=== PATIENT | female | born 1960 | race Caucasian/White ===

== ENCOUNTER 2017-09-02 22:17 | Emergency (ER) | payer OTHER ==
[~2017-09-02 22:17] MED LIST: ADVA250A INH; ALBU1AER INH; ALPR1TAB3 PO; ASPI325T PO; CIPR250 PO; ISOS30 PO; OXYC1SOL5 PO; OXYC30TA PO; SOMA350T PO; XANA2TAB2 PO
[2017-09-02] MEDS ORDERED: IOHEXOL 350 MG/ML 10 ML VIAL (for RAD DIAG) IVCONTRAST ONE (22:18)
[2017-09-02 22:25] VITALS: BP 161/88; PULSE 59; RESP 20; TEMP 97.7; O2SAT 97
[2017-09-02] MEDS ORDERED: SODIUM CHLORIDE 0.9% FLUSH 10 ML FLUSH IVF PRN (22:30)
[2017-09-02] MEDS ORDERED: KETOROLAC TROMETHAMINE 30 MG/ML (IVP) VIAL IV PUSH ONE (22:30)
[2017-09-02] MEDS ORDERED: RESP: ALBUTEROL 2.5 MG/IPRATROPIUM 0.5 MG NEB (SCH) NEB ONE (22:30)
[2017-09-02] MEDS ORDERED: ASPI-516 CHEW (22:37)
[2017-09-02] MEDS ORDERED: XANA2TAB2 PO (22:37)
[2017-09-02] MEDS ORDERED: FENT50DI T-DERMAL (22:37)
[2017-09-02] MEDS ORDERED: OXYC-426 PO (22:38)
[2017-09-02 22:50] VITALS: O2SAT 97
--- NOTE | 2017-09-02 22:59 | RADRPT ---
EXAM DATE/TIME: 09/02/2017 22:38 [facility] COMPARISON: CHEST SINGLE AP, January 11, 2016, 17:45. INDICATIONS : Patient complains of chest pain and shortness of breath. MEDICAL HISTORY : None. SURGICAL HISTORY : None. ENCOUNTER: Initial ACUITY: 4 - 6 days PAIN SCORE: 4/10 LOCATION: chest FINDINGS: A single view of the chest demonstrates the lungs to be symmetrically hyperaerated without evidence o f mass, infiltrate or effusion. The cardiomediastinal contours are unremarkable. Osseous structures are intact. CONCLUSION: COPD No acute cardio pulmonary process. Talha Calhoun MD on September 02, 2017 at 22:57 Board Certified Radiologist. This report was verified electronically.
[2017-09-02] MEDS ORDERED: KETOROLAC TROMETHAMINE 60 MG/2 ML (IM) VIAL IM ONE (23:30)
[2017-09-02] MEDS ORDERED: traMADol HCL 50 MG TAB PO ONE (23:30)
[2017-09-03 00:21] LABS: AUTOMATED NEUTROPHIL # 12.2 TH/MM3 (1.8-7.7); BASOPHIL % 0.2 % (0.0-2.0); EOSINOPHIL % 0.1 % (0.0-4.0); HEMATOCRIT 38.1 % (35.0-46.0); HEMOGLOBIN 12.6 GM/DL (11.6-15.3); LYMPH % 14.8 % (9.0-44.0); LYMPHOCYTE # 2.3 TH/MM3 (1.0-4.8); MEAN CELL VOLUME 93.3 FL (80.0-100.0); MEAN CORPUSCULAR HEMOGLOBIN 30.8 PG (27.0-34.0); MEAN PLATELET VOLUME 8.4 FL (7.0-11.0); MONO % 6.7 % (0.0-8.0); MONOCYTE # 1.1 TH/MM3 (0-0.9); NEUT % 78.2 % (16.0-70.0); PLATELET COUNT 236 TH/MM3 (150-450); RED BLOOD COUNT 4.08 MIL/MM3 (4.00-5.30); RED CELL DISTRIBUTION WIDTH 14.1 % (11.6-17.2); WHITE BLOOD COUNT 15.6 TH/MM3 (4.0-11.0)
[2017-09-03 01:08] LABS: D-DIMER 1.92 MG/L FEU (0.00-0.50)
[2017-09-03 01:12] LABS: ALBUMIN 3.1 GM/DL (3.4-5.0); ALKALINE PHOSPHATASE 66 U/L (45-117); ALT (GPT) 21 U/L (10-53); AST (GOT) 23 U/L (15-37); BICARBONATE 22.9 MEQ/L (21.0-32.0); BLOOD UREA NITROGEN 24 MG/DL (7-18); CALCIUM 8.2 MG/DL (8.5-10.1); CHLORIDE 108 MEQ/L (98-107); CREATININE 0.75 MG/DL (0.50-1.00); GLOMERULAR FILTRATION RATE 79 ML/MIN (>89); GLUCOSE,RANDOM 128 MG/DL (74-106); SODIUM (NA) 139 MEQ/L (136-145); TOTAL BILIRUBIN ADULT 0.2 MG/DL (0.2-1.0); TOTAL PROTEIN 6.7 GM/DL (6.4-8.2); TROPONIN I 0.02 NG/ML (0.02-0.05)
--- NOTE | 2017-09-03 04:06 | RADRPT ---
EXAM DATE/TIME: 09/03/2017 03:49 [facility] COMPARISON: No previous studies available for comparison. INDICATIONS : Left sided chest pain with elevated D-Dimer. IV CONTRAST: 50 cc Omnipaque 350 (iohexol) IV RADIATION DOSE: 6.20 CTDIvol (mGy) MEDICAL HISTORY : Cerebrovascular disease. Chronic obstructive pulmonary disease. SURGICAL HISTORY : Hysterectomy. ENCOUNTER: Initial ACUITY: 1 day PAIN SCALE: 7/10 LOCATION: Left chest TECHNIQUE: Volumetric scanning of the chest was performed using a pulmonary embolism protocol MIP images were re constructed. Using automated exposure control and adjustment of the mA and/or kV according to patien t size, radiation dose was kept as low as reasonably achievable to obtain optimal diagnostic quality images. DICOM format image data is available electronically for review and comparison. Follow-up recommendations for detected pulmonary nodules are based at a minimum on nodule size and pa tient risk factors according to Fleischner Society Guidelines. FINDINGS: PULMONARY ARTERIES: No filling defects are seen in the pulmonary arteries through the segmental level. LUNGS: Moderate severity centrilobular and paraseptal pulmonary parenchymal emphysema with upper lobe predom inance. Mild atelectasis of the lower lobes bilaterally. PLEURAE: There is no pleural thickening or pleural effusion. MEDIASTINUM: Coronary artery calcifications. Aortic calcifications. Aortic diameter are within normal limits. No e nlarged mediastinal lymph nodes. MUSCULOSKELETAL: Within normal limits for patient age. MISCELLANEOUS: The visualized upper abdominal organs demonstrate no acute abnormality. CONCLUSION: 1. No evidence of pulmonary embolus. 2. Moderate severity pulmonary emphysema. 3. Coronary artery calcification. Gordo Devlin MD on September 03, 2017 at 3:57 Board Certified Radiologist. This report was verified electronically.
--- NOTE | 2017-09-03 04:23 | PD ---
HPI . Chest pain Chief Complaint: Chest Pain Time Seen by Provider: 22:23 Travel History International Travel<30 days: No Contact w/Intl Traveler<30days: No Traveled to known affect area: No History of Present Illness HPI 49-year-old female discharge today from [facility] with diagnosed pneumonia and left side, complains of having chest pain or left-sided slight shortness of breath. Chest pain is described as being pleuritic, sharp, worse with deep breath. Patient has no cough. Patient denies any recent leg swelling or pain. Patient has been sedentary lying in a hospital bed for past several days. Patient denies any fevers chills sweats. PFSH Past Medical History Narrative Medical Past medical history reviewed Anxiety: Yes Cardiovascular Problems: Yes COPD: Yes Cerebrovascular Accident: Yes Diminished Hearing: No Seizures: Yes Past Surgical History Hysterectomy: Yes Neurologic Surgery: Yes (anyrisym) Tonsillectomy: Yes Family History Family Myocardial Infarction: Yes Social History Alcohol Use: No Tobacco Use: Yes (1 pack) Substance Use: No Allergies-Medications (Allergen,Severity, Reaction): Coded Allergies: Sulfa (Sulfonamide Antibiotics) (Unverified Allergy, Severe, 09/02/17) acetaminophen (Unverified Allergy, Severe, 09/02/17) codeine (Unverified Allergy, Severe, 09/02/17) erythromycin base (Unverified Allergy, Severe, 09/02/17) Reported Meds & Prescriptions Reported Meds & Active Scripts Active Reported Oxycodone ER (Oxycodone HCl) 30 Mg Tab 30 Mg PO Q8HR Xanax (Alprazolam) 2 Mg Tab 2 Mg PO Q8H PRN Fentanyl Patch 72 HR (Fentanyl) 50 Mcg/Hr Patch 50 Mcg T-DERMAL Q72H Remove old patch when new one placed. Aspirin 81 Mg Chew 81 Mg CHEW DAILY Narrative Medication Allergies and medications reviewed Review of Systems Except as stated in HPI: all other systems reviewed are Neg General / Constitutional: No: Fever Eyes: No: Visual changes HENT: No: Headaches Cardiovascular: Positive: Chest Pain or Discomfort, No: Palpitations, Irregular Rhythm, Tachycardia Respiratory: Positive: Shortness of Breath, Pleuritic Pain, No: Cough, Orthopnea, Hemoptysis, Stridor, Night Sweats Gastrointestinal: No: Abdominal Pain Genitourinary: No: Dysuria Musculoskeletal: No: Pain Skin: No Rash Neurologic: No: Weakness Psychiatric: No: Depression Endocrine: No: Polydipsia Hematologic/Lymphatic: No: Easy Bruising Physical Exam Narrative GENERAL: Awake and alert oriented 3 no acute distress. Patient does appear somewhat uncomfortable SKIN: Warm and dry. Color is normal no diaphoresis cyanosis or pallor HEAD: Atraumatic. Normocephalic. EYES: Pupils equal and round. No scleral icterus. No injection or drainage. ENT: No nasal bleeding or discharge. Mucous membranes pink and moist. NECK: Trachea midline. No JVD. Supple full range of motion CARDIOVASCULAR: Regular rate and rhythm. S1-S2 no murmurs or gallops RESPIRATORY: No accessory muscle use. Clear to auscultation. Breath sounds equal bilaterally. Chest wall nontender GASTROINTESTINAL: Abdomen soft, non-tender, nondistended. Hepatic and splenic margins not palpable. MUSCULOSKELETAL: Extremities without clubbing, cyanosis, or edema. No obvious deformities. NEUROLOGICAL: Awake and alert. No obvious cranial nerve deficits. Motor grossly within normal limits. Five out of 5 muscle strength in the arms and legs. Normal speech. PSYCHIATRIC: Appropriate mood and affect; insight and judgment normal. Data Data Last Documented VS Vital Signs Date Time Temp Pulse Resp B/P (MAP) Pulse Ox O2 Delivery O2 Flow Rate FiO2 09/02/17 22:51 18 97 Room Air 09/02/17 22:25 97.7 59 161/88 (112) Orders Orders Electrocardiogram (09/02/17 22:28) B-Type Natriuretic Peptide (09/02/17 22:28) Ckmb (Isoenzyme) Profile (09/02/17 22:28) Complete Blood Count With Diff (09/02/17 22:28) Comprehensive Metabolic Panel (09/02/17 22:28) D-Dimer (09/02/17 22:28) Magnesium (Mg) (09/02/17 22:28) Prothrombin Time / Inr (Pt) (09/02/17 22:28) Act Partial Throm Time (Ptt) (09/02/17 22:28) Troponin I (09/02/17 22:28) Chest, Single Ap (09/02/17 22:28) Ecg Monitoring (09/02/17 22:28) Bilateral Bp Monitoring (09/02/17 22:28) Iv Access Insert/Monitor (09/02/17 22:28) Oximetry (09/02/17 22:28) Oxygen Administration (09/02/17 22:28) Sodium Chloride 0.9% Flush (Ns Flush) (09/02/17 22:30) Albuterol-Ipratropium Neb (Duoneb Neb) (09/02/17 22:30) Ketorolac Inj (Toradol Inj) (09/02/17 23:30) Tramadol (Ultram) (09/02/17 23:30) Ct Pulmonary Angiogram (09/03/17 ) Iohexol 350 Inj (Omnipaque 350 Inj) (09/02/17 22:18) Labs Laboratory Tests Test 09/02/17 23:59 White Blood Count 15.6 TH/MM3 Red Blood Count 4.08 MIL/MM3 Hemoglobin 12.6 GM/DL Hematocrit 38.1 % Mean Corpuscular Volume 93.3 FL Mean Corpuscular Hemoglobin 30.8 PG Mean Corpuscular Hemoglobin Concent 33.0 % Red Cell Distribution Width 14.1 % Platelet Count 236 TH/MM3 Mean Platelet Volume 8.4 FL Neutrophils (%) (Auto) 78.2 % Lymphocytes (%) (Auto) 14.8 % Monocytes (%) (Auto) 6.7 % Eosinophils (%) (Auto) 0.1 % Basophils (%) (Auto) 0.2 % Neutrophils # (Auto) 12.2 TH/MM3 Lymphocytes # (Auto) 2.3 TH/MM3 Monocytes # (Auto) 1.1 TH/MM3 Eosinophils # (Auto) 0.0 TH/MM3 Basophils # (Auto) 0.0 TH/MM3 CBC Comment AUTO DIFF Differential Comment AUTO DIFF CONFIRMED Prothrombin Time 10.0 SEC Prothromb Time International Ratio 1.0 RATIO Activated Partial Thromboplast Time 19.2 SEC D-Dimer Quantitative (PE/DVT) 1.92 MG/L FEU Blood Urea Nitrogen 24 MG/DL Creatinine 0.75 MG/DL Random Glucose 128 MG/DL Total Protein 6.7 GM/DL Albumin 3.1 GM/DL Calcium Level 8.2 MG/DL Magnesium Level 2.0 MG/DL Alkaline Phosphatase 66 U/L Aspartate Amino Transf (AST/SGOT) 23 U/L Alanine Aminotransferase (ALT/SGPT) 21 U/L Total Bilirubin 0.2 MG/DL Sodium Level 139 MEQ/L Potassium Level 4.2 MEQ/L Chloride Level 108 MEQ/L Carbon Dioxide Level 22.9 MEQ/L Anion Gap 8 MEQ/L Estimat Glomerular Filtration Rate 79 ML/MIN Total Creatine Kinase 78 U/L Troponin I 0.02 NG/ML B-Type Natriuretic Peptide 88 PG/ML MDM Medical Decision Making Medical Screen Exam Complete: Yes Emergency Medical Condition: Yes Medical Record Reviewed: Yes Differential Diagnosis Pleuritis, atypical chest pain, portable is, costochondritis, chest wall pain/ strain Narrative Course Chest x-ray no acute infiltrates. Patient's laboratory reviewed, patient has elevated white blood cell count without significant left shift consistent with probable concomitant steroid use D-dimer positive at 1.91. CT pulmonary Gen. chest negative for pulmonary embolus Patient improved with pain medications. Discharge Diagnosis Primary Impression: Chest pain, atypical Patient Instructions: Chest Pain (ED), General Instructions Additional Instructions: Pain medications sparingly as needed for chest pain/probable pleuritis. Follow- up with your doctor. Return for worsening Disposition: 01 DISCHARGE HOME Condition: Stable John Mancilla MD Sep 03, 2017 04:22
--- NOTE | 2017-09-03 12:44 | EKG ---
Date Performed: 09/02/2017 Time Performed: 22:46:40 PTAGE: 57 years EKG: Poor initial anterior forces, probable normal variant Sinus bradycardia Since previous trac ing, no significant change noted ABNORMAL ECG PREVIOUS TRACING : 01/12/2016 01.52 DOCTOR: Yazan Ahumada Interpretating Date/Time 09/03/2017 12:43:14
[2017-09-03] MEDS ORDERED: PROZ40CA PO (15:08)
[2017-09-03] MEDS ORDERED: BUSP5TAB PO (15:08)
[2017-09-03] MEDS ORDERED: LIPI10TA PO (15:08)
== END 2017-09-03 05:06 | disposition home or self-care (01) ==
LOC: NEPE 22:17
DX: R07.89 Other chest pain (principal); R00.1 Bradycardia, unspecified; R94.31 Abnormal electrocardiogram [ECG] [EKG]; F41.9 Anxiety disorder, unspecified; J44.9 Chronic obstructive pulmonary disease, unspecified; R56.9 Unspecified convulsions; F17.200 Nicotine dependence, unspecified, uncomplicated; Z86.73 Personal history of transient ischemic attack (TIA), and cerebral infarction without residual deficits; Z79.82 Long term (current) use of aspirin
CPT/HCPCS: 71045; 71275; 80053; 82550; 83735; 83880; 84484; 85025; 85379; 85610; 85730; 93005; 94664; 96372; J1885; Q9967

== ENCOUNTER 2017-09-03 06:16 | Inpatient (IN) | payer OTHER ==
[~2017-09-03] VITALS: Ht 182.9 cm; Wt 49.0 kg
[~2017-09-03 06:16] MED LIST changes: -ADVA250A INH; -ALBU1AER INH; -ALPR1TAB3 PO; +ASPI-516 CHEW; -ASPI325T PO; -CIPR250 PO; +FENT50DI T-DERMAL; -ISOS30 PO; +OXYC-426 PO; -OXYC1SOL5 PO; -OXYC30TA PO; -SOMA350T PO
[2017-09-03 06:19] VITALS: BP 173/75; PULSE 82; RESP 20; TEMP 98.5; O2SAT 98
--- NOTE | 2017-09-03 06:32 | PD ---
HPI Chief Complaint: Psychiatric Symptoms Time Seen by Provider: 06:27 Travel History International Travel<30 days: No Contact w/Intl Traveler<30days: No Traveled to known affect area: No History of Present Illness HPI 57-year-old female presents to emergency department voluntarily for psychiatric evaluation. Patient states that she is overwhelmed. She lost her 2 weeks ago and states that she wants to go and be with him. She wants to go home and get one of his guns and kill herself. She states that she is trying to be strong for everybody else, but is unable to and feels like she has nobody to lean on. She states she's been having chest pains and her heart has been looked at so she believes this is likely secondary to anxiety. Back patient was seen and evaluated earlier this evening with a complete negative workup. Patient is very tearful and anxious in the room. She reports no acute medical needs at this time. PFSH Past Medical History Anxiety: Yes Cardiovascular Problems: Yes COPD: Yes Cerebrovascular Accident: Yes Diminished Hearing: No Respiratory: Yes (COPD) Seizures: Yes Past Surgical History Hysterectomy: Yes Neurologic Surgery: Yes (anyrisym) Tonsillectomy: Yes Family History Family Myocardial Infarction: Yes Social History Alcohol Use: No Tobacco Use: Yes (1 pack) Substance Use: No Allergies-Medications (Allergen,Severity, Reaction): Coded Allergies: Sulfa (Sulfonamide Antibiotics) (Unverified Allergy, Severe, 09/03/17) acetaminophen (Unverified Allergy, Severe, 09/03/17) codeine (Unverified Allergy, Severe, 09/03/17) erythromycin base (Unverified Allergy, Severe, 09/03/17) Reported Meds & Prescriptions Reported Meds & Active Scripts Active Reported Oxycodone ER (Oxycodone HCl) 30 Mg Tab 30 Mg PO Q8HR Xanax (Alprazolam) 2 Mg Tab 2 Mg PO Q8H PRN Fentanyl Patch 72 HR (Fentanyl) 50 Mcg/Hr Patch 50 Mcg T-DERMAL Q72H Remove old patch when new one placed. Aspirin 81 Mg Chew 81 Mg CHEW DAILY Review of Systems Except as stated in HPI: all other systems reviewed are Neg Physical Exam Narrative GENERAL: Disheveled appearing elderly female patient, lying in bed tearful, anxious, SKIN: Focused skin assessment warm/dry. HEAD: Atraumatic. Normocephalic. EYES: Pupils equal and round. No scleral icterus. No injection or drainage. ENT: No nasal bleeding or discharge. Mucous membranes pink and moist. NECK: Trachea midline. No JVD. CARDIOVASCULAR: Regular rate and rhythm. No murmur appreciated. RESPIRATORY: No accessory muscle use. Clear to auscultation. Breath sounds equal bilaterally. GASTROINTESTINAL: Abdomen soft, non-tender, nondistended. Hepatic and splenic margins not palpable. MUSCULOSKELETAL: No obvious deformities. No clubbing. No cyanosis. No edema. Right lower extremity BKA NEUROLOGICAL: Awake and alert. No obvious cranial nerve deficits. Motor grossly within normal limits. Normal speech. Data Data Last Documented VS Vital Signs Date Time Temp Pulse Resp B/P (MAP) Pulse Ox O2 Delivery O2 Flow Rate FiO2 09/03/17 06:19 98.5 82 20 173/75 (107) 98 Room Air Orders Orders Psych Screen (09/03/17 06:31) Lorazepam (Ativan) (09/03/17 06:45) MDM Medical Decision Making Medical Screen Exam Complete: Yes Emergency Medical Condition: Yes Medical Record Reviewed: Yes Differential Diagnosis Mood disorder versus personality disorder versus adjustment reaction disorder Narrative Course 57-year-old female presents to the emergency department voluntarily for psychiatric evaluation. Patient is having suicidal thoughts with a plan to go home and shoot herself. Patient is having difficult time coping with her 's . She does not want to go home. She wants to stay and get help. At this time she is voluntary status. Lab work was done at her earlier visit today. [facility] it is reviewed and patient is medically cleared to undergo psychiatric screening for further evaluation and disposition. Diagnosis Primary Impression: Adjustment reaction Qualified Codes: F43.23 - Adjustment disorder with mixed anxiety and depressed mood Condition: Stable StewartJazlyn MADELIN Sep 03, 2017 06:32
[2017-09-03] MEDS ORDERED: LORazepam 1 MG TAB PO ONE (06:45)
[2017-09-03 10:05] VITALS: BP 146/84; PULSE 69; RESP 16; O2SAT 98
[2017-09-03] MEDS ORDERED: PROZ40CA PO (15:08)
[2017-09-03] MEDS ORDERED: BUSP5TAB PO (15:08)
[2017-09-03] MEDS ORDERED: LIPI10TA PO (15:08)
[2017-09-03 16:52] VITALS: BP 160/98; PULSE 65; RESP 17; TEMP 98.1
[2017-09-03] MEDS ORDERED: fentaNYL 50 MCG/HR PATCH T-DERMAL SCH (17:30)
[2017-09-03] MEDS ORDERED: RESP: ALBUTEROL 2.5 MG/IPRATROPIUM 0.5 MG NEB (PRN) NEB (17:30)
[2017-09-03] MEDS: REMOVE OLD PATCH T-DERMAL SCH (18:00)
[2017-09-03] MEDS: fentaNYL 50 MCG/HR PATCH T-DERMAL SCH (18:00)
[2017-09-03] MEDS: ASPIRIN 81 MG CHEW TAB CHEW SCH (18:28)
[2017-09-03] MEDS: ALPRAZolam 1 MG TAB PO PRN (18:29)
[2017-09-03] MEDS: ATORVASTATIN 10 MG TAB PO SCH (18:29)
[2017-09-03] MEDS ORDERED: NICOTINE 21 MG/24 HR PATCH T-DERMAL ONE (18:30)
[2017-09-03] MEDS ORDERED: OXYCODONE 30 MG PO SCH (22:00)
[2017-09-03] MEDS: guaiFENesin E.R. 600 MG TAB PO SCH (22:09)
[2017-09-03] MEDS: oxyCODONE HCL 10 MG CONTROLLED RELEASE TAB PO SCH (22:09)
[2017-09-04] MEDS: oxyCODONE HCL 10 MG CONTROLLED RELEASE TAB PO SCH (06:14)
[2017-09-04 06:38] VITALS: BP 141/71; PULSE 62; RESP 16; TEMP 98.1; O2SAT 95
[2017-09-04] MEDS: REMOVE OLD PATCH T-DERMAL SCH (08:26)
[2017-09-04] MEDS: guaiFENesin E.R. 600 MG TAB PO SCH ×2 (08:26→21:44)
[2017-09-04] MEDS: NICOTINE 21 MG/24 HR PATCH T-DERMAL SCH (08:26)
[2017-09-04] MEDS: ATORVASTATIN 10 MG TAB PO SCH (08:27)
[2017-09-04] MEDS: ASPIRIN 81 MG CHEW TAB CHEW SCH (08:27)
[2017-09-04] MEDS: ALPRAZolam 1 MG TAB PO PRN (08:45)
[2017-09-04] MEDS ORDERED: ASPIRIN 81 MG CHEW TAB PO SCH (09:00)
[2017-09-04] MEDS ORDERED: ATORVASTATIN 10 MG TAB PO SCH (09:00)
[2017-09-04] MEDS: fentaNYL 50 MCG/HR PATCH T-DERMAL SCH (12:15)
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
[2017-09-04] MEDS ORDERED: FLUMAZENIL 0.5 MG/5 ML VIAL IV PUSH PRN (15:45)
[2017-09-04] MEDS ORDERED: LORazepam 1 MG TAB PO PRN (15:45)
[2017-09-04] MEDS ORDERED: LORazepam 2 MG/ML VIAL IM PRN ×3 (15:45)
[2017-09-04] MEDS ORDERED: LORazepam 2 MG TAB PO PRN (15:45)
[2017-09-04] MEDS: oxyCODONE HCL 20 MG CONTROLLED RELEASE TAB PO SCH ×2 (15:45→22:00)
[2017-09-04] MEDS: FLUoxetine HCL 20 MG CAP PO SCH (15:50)
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
[2017-09-04 16:49] LABS: AUTOMATED NEUTROPHIL # 7.5 TH/MM3 (1.8-7.7); BASOPHIL # 0.1 TH/MM3 (0-0.2); BASOPHIL % 0.6 % (0.0-2.0); EOSINOPHIL # 0.3 TH/MM3 (0-0.4); EOSINOPHIL % 2.6 % (0.0-4.0); HEMATOCRIT 44.6 % (35.0-46.0); HEMOGLOBIN 14.7 GM/DL (11.6-15.3); LYMPH % 32.7 % (9.0-44.0); LYMPHOCYTE # 4.4 TH/MM3 (1.0-4.8); MEAN CELL VOLUME 93.4 FL (80.0-100.0); MEAN CORPUSCULAR HEMOGLOBIN 30.8 PG (27.0-34.0); MEAN PLATELET VOLUME 8.6 FL (7.0-11.0); MONO % 7.4 % (0.0-8.0); NEUT % 56.7 % (16.0-70.0); PLATELET COUNT 304 TH/MM3 (150-450); RED BLOOD COUNT 4.78 MIL/MM3 (4.00-5.30); RED CELL DISTRIBUTION WIDTH 14.3 % (11.6-17.2); WHITE BLOOD COUNT 13.3 TH/MM3 (4.0-11.0)
[2017-09-04 17:10] LABS: ALBUMIN 3.7 GM/DL (3.4-5.0); AST (GOT) 23 U/L (15-37); BLOOD UREA NITROGEN 21 MG/DL (7-18); CALCIUM 8.3 MG/DL (8.5-10.1); CHLORIDE 102 MEQ/L (98-107); CHOLESTEROL 116 MG/DL (120-200); CREATININE 1.03 MG/DL (0.50-1.00); GLOMERULAR FILTRATION RATE 55 ML/MIN (>89); GLUCOSE,RANDOM 85 MG/DL (74-106); SODIUM (NA) 137 MEQ/L (136-145); TRIGLYCERIDES 210 MG/DL (42-150)
[2017-09-04 17:20] LABS: ALKALINE PHOSPHATASE 76 U/L (45-117); ALT (GPT) 29 U/L (10-53); CHOLESTEROL/ HDL RATIO 1.94 RATIO; FREE T4 1.06 NG/DL (0.76-1.46); HDL CHOLESTEROL 59.5 MG/DL (40.0-60.0); LDL CHOLESTEROL 15 MG/DL (0-99); PHOSPHORUS 5.6 MG/DL (2.5-4.9); TOTAL BILIRUBIN ADULT 0.4 MG/DL (0.2-1.0); TOTAL PROTEIN 7.5 GM/DL (6.4-8.2)
[2017-09-04] MEDS: clonazePAM 1 MG TAB PO SCH ×2 (18:21→22:18)
[2017-09-04 18:26] VITALS: BP 107/64; PULSE 66; RESP 16; TEMP 97.8; O2SAT 94
[2017-09-04] MEDS: busPIRone HCL 5 MG TAB PO SCH (21:44)
[2017-09-04 22:35] LABS: HEMOGLOBIN A1C 5.2 % (4.3-6.0)
[2017-09-05 06:05] VITALS: BP 122/61; PULSE 51; RESP 16; TEMP 98.3; O2SAT 94
[2017-09-05] MEDS: oxyCODONE HCL 20 MG CONTROLLED RELEASE TAB PO SCH (06:23)
[2017-09-05] MEDS: REMOVE OLD PATCH T-DERMAL SCH (09:00)
[2017-09-05] MEDS: LISINOPRIL 5 MG TAB PO SCH (09:00)
[2017-09-05] MEDS: NICOTINE 21 MG/24 HR PATCH T-DERMAL SCH (09:13)
[2017-09-05] MEDS: busPIRone HCL 5 MG TAB PO SCH ×3 (09:15→21:20)
[2017-09-05] MEDS: clonazePAM 1 MG TAB PO SCH ×4 (09:15→21:19)
[2017-09-05] MEDS: guaiFENesin E.R. 600 MG TAB PO SCH ×2 (09:16→21:19)
[2017-09-05] MEDS: ATORVASTATIN 10 MG TAB PO SCH (09:17)
[2017-09-05] MEDS: FLUoxetine HCL 20 MG CAP PO SCH (09:18)
[2017-09-05] MEDS: ASPIRIN 81 MG CHEW TAB CHEW SCH (09:18)
--- NOTE | 2017-09-05 09:42 | HHI.PYPN ---
Subjective Chief Complaint: "I have no desire to live" Remarks Patient seen and examined with nurse. Chart reviewed. I was called yesterday afternoon by the nurse because the patient was clearly intoxicated on her prescribed controlled substances, reportedly giggling and slurring her words. I instructed nurse to hold doses of opiates if patient remained intoxicated. Case discussed in treatment team. Counselor reports that the patient is presently without stable housing and may be looking for placement. On my exam, patient confirms that she does not have a place to stay presently. She remains dysphoric and continues to endorse SI with plans as before. She denies any urge to hurt herself on the inpatient unit. She says that her anxiety is "through the roof" although the patient does not appear at all anxious. Indeed , she continues to appear intoxicated from substances. She is resistant to adjusting her controlled substances. Denies side effects from medications. Endorses chronic pain complaints and is resistant to considering non-controlled adjuvant agents for pain. No other physical complaints. Review of Systems Except as stated in HPI: all other systems reviewed are Neg Mental Status Examination Appearance: Other (in hospital attire. Grooming remains fair.) Consciousness: Other (Somewhat drowsy) Orientation: Person, Place (at least) Motor Activity: Other (remains psychomotor slowed) Speech: Slow, Other (somewhat slurred) Language: Adequate Fund of Knowledge: Adequate Attention and Concentration: Easily Distracted Memory: Unremarkable Mood: Other (remains dysphoric) Affect: Blunt Thought Process & Associations: Other (slowed) Thought Content: Appropriate Hallucination Type: None Delusion Type: None Suicidal Ideation: Yes Suicidal Plan: Yes (again no reported urge to hurt herself on the inpatient unit) Suicidal Intention: No Homicidal Ideation: No Homicidal Plan: No Homicidal Intention: No Insight: Fair Judgment: Impulsive Mental Status Exam Remarks No signs of GABAergic withdrawal. CIWA max in last 24 hours = 1. Results Labs Test 09/04/17 16:24 White Blood Count 13.3 TH/MM3 Red Blood Count 4.78 MIL/MM3 Hemoglobin 14.7 GM/DL Hematocrit 44.6 % Mean Corpuscular Volume 93.4 FL Mean Corpuscular Hemoglobin 30.8 PG Mean Corpuscular Hemoglobin Concent 33.0 % Red Cell Distribution Width 14.3 % Platelet Count 304 TH/MM3 Mean Platelet Volume 8.6 FL Neutrophils (%) (Auto) 56.7 % Lymphocytes (%) (Auto) 32.7 % Monocytes (%) (Auto) 7.4 % Eosinophils (%) (Auto) 2.6 % Basophils (%) (Auto) 0.6 % Neutrophils # (Auto) 7.5 TH/MM3 Lymphocytes # (Auto) 4.4 TH/MM3 Monocytes # (Auto) 1.0 TH/MM3 Eosinophils # (Auto) 0.3 TH/MM3 Basophils # (Auto) 0.1 TH/MM3 CBC Comment DIFF FINAL Differential Comment Blood Urea Nitrogen 21 MG/DL Creatinine 1.03 MG/DL Random Glucose 85 MG/DL Total Protein 7.5 GM/DL Albumin 3.7 GM/DL Calcium Level 8.3 MG/DL Phosphorus Level 5.6 MG/DL Magnesium Level 2.0 MG/DL Alkaline Phosphatase 76 U/L Aspartate Amino Transf (AST/SGOT) 23 U/L Alanine Aminotransferase (ALT/SGPT) 29 U/L Total Bilirubin 0.4 MG/DL Sodium Level 137 MEQ/L Potassium Level 3.7 MEQ/L Chloride Level 102 MEQ/L Carbon Dioxide Level 27.0 MEQ/L Anion Gap 8 MEQ/L Estimat Glomerular Filtration Rate 55 ML/MIN Hemoglobin A1c 5.2 % Triglycerides Level 210 MG/DL Cholesterol Level 116 MG/DL LDL Cholesterol 15 MG/DL HDL Cholesterol 59.5 MG/DL Cholesterol/HDL Ratio 1.94 RATIO Free Thyroxine 1.06 NG/DL Thyroid Stimulating Hormone 3rd Gen 9.410 uIU/ML Labs reviewed. Compared to laboratories from 09/02, I note improved leukocytosis and decreased GFR. TSH is somewhat elevated. Last Impressions Brain MRI 09/05/17 0000 Signed Impressions: Service Date/Time: Tuesday, September 05, 2017 10:34 - CONCLUSION: 1. Focal encephalomalacia in the left medial parieto-occipital mid to high convexities with associated gliosis. No evidence for associated mass or mass effect. Overall findings are most consistent with focal chronic infarct. Tom Jimenez MD Vitals/IOs Vital Signs Date Time Temp Pulse Resp B/P (MAP) Pulse Ox O2 Delivery O2 Flow Rate FiO2 09/05/17 06:05 98.3 51 16 122/61 (81) 94 09/03/17 06:19 Room Air Assessment & Plan Problem List: (1) Adjustment reaction ICD Codes: F43.20 - Adjustment disorder, unspecified Status: Acute Assessment & Plan: Rule-out component of secondary gain for intermediate. (2) Rule-out iatrogenic substance use disorder Assessment & Plan Continue Prozac 60mg daily for low mood. Titrate BuSpar to 10mg TID to target reported anxiety. Patient remains mildly intoxicated on current opioid regimen , and I also note her SpO2 is 94%, no non-verbal pain behaviors noted: taper Oxycontin to 10mg q8h and continue fentanyl patch as ordered. R/B/A for med changes discussed with patient. Continue Klonopin taper and continue CIWA scale with Ativan for breakthrough withdrawal. Neuro has ordered MRI brain, impression reviewed. Await consultation note from neurology. Check FT4. Check UA given improving leukocytosis. Continue to monitor on inpatient unit. Continue other meds and care as ordered. Justification for Cont. Inpt. Complicating conditions (intoxication on outpatient med regimen). Med changes. Impairment in safety. High risk for decompensation in less restrictive setting. Discharge Planning Pending psychiatric stabilization Request HC Surrog/Guard Advoc?: No Problem Qualifiers (1) Adjustment reaction: Qualified Codes: F43.23 - Adjustment disorder with mixed anxiety and depressed mood Holden Sweet MD Sep 05, 2017 09:42
--- NOTE | 2017-09-05 11:22 | RADRPT ---
EXAM DATE/TIME: 09/05/2017 10:34 [facility] COMPARISON: No previous studies available for comparison. INDICATIONS : Cephalgia. Seizure activity. MEDICAL HISTORY : Chronic obstructive pulmonary disease. Aneurysm, intracranial. Seizures. SURGICAL HISTORY : Tubal ligation. Cholecystectomy. Aneurysm coiling. Jaw reconstruction. Iza GASTON. ENCOUNTER: Subsequent ACUITY: 3 day PAIN SCORE: 2/10 LOCATION: head. TECHNIQUE: Multiplanar, multisequence MRI of the brain was performed without contrast. FINDINGS: CEREBRUM: There is focal encephalomalacia of the left medial parieto-occipital mid to high convex ities with adjacent white matter increased flair and T2 signal. No associated hemorrhage or restricte d diffusion. The ventricles are normal for age. No evidence of midline shift, hemorrhage or acute i nfarction. No extraaxial fluid collections are seen. The pituitary gland and suprasellar cistern ar e normal in configuration. WHITE MATTER: No significant signal abnormalities are seen in the white matter. POSTERIOR FOSSA: The cerebellum and brainstem are intact. The 4th ventricle is midline. The cere bellopontine angle is unremarkable. The cerebellar tonsils are normal in position. DIFFUSION IMAGING: No focal areas of restricted diffusion are seen. No evidence of acute infarct ion. EXTRACRANIAL: The visualized portions of the orbits and paranasal sinuses are unremarkable. CONCLUSION: 1. Focal encephalomalacia in the left medial parieto-occipital mid to high convexities with associate d gliosis. No evidence for associated mass or mass effect. Overall findings are most consistent with focal chronic infarct. Tom Jimenez MD on September 05, 2017 at 11:11 Board Certified Radiologist. This report was verified electronically.
[2017-09-05] MEDS: oxyCODONE HCL 10 MG CONTROLLED RELEASE TAB PO SCH ×2 (13:31→21:27)
[2017-09-05 17:45] VITALS: BP 101/68; PULSE 61; RESP 16; TEMP 97.9; O2SAT 99
[2017-09-05 18:00] LABS: BILIRUBIN, URINE NEG (NEG); BLOOD, URINE NEG (NEG); GLUCOSE,URINE NEG (NEG); KETONE, URINE NEG (NEG); NITRITE,URINE NEG (NEG); SQUAMOUS EPITHELIAL CELL URINE <1 /hpf (0-5); URINE COLOR LIGHT-YELLOW (YELLW/STRAW); URINE LEUKOCYTE ESTERASE NEG (NEG)
[2017-09-05] MEDS: levETIRAcetam 500 MG TAB PO SCH (21:21)
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
[2017-09-06] MEDS: oxyCODONE HCL 10 MG CONTROLLED RELEASE TAB PO SCH ×3 (06:27→21:31)
[2017-09-06] MEDS: NICOTINE 21 MG/24 HR PATCH T-DERMAL SCH (08:33)
[2017-09-06] MEDS: LISINOPRIL 5 MG TAB PO SCH (08:34)
[2017-09-06] MEDS: ATORVASTATIN 10 MG TAB PO SCH (08:34)
[2017-09-06] MEDS: clonazePAM 1 MG TAB PO SCH ×4 (08:34→20:39)
[2017-09-06] MEDS: guaiFENesin E.R. 600 MG TAB PO SCH ×2 (08:34→21:31)
[2017-09-06] MEDS: levETIRAcetam 500 MG TAB PO SCH ×2 (08:34→20:39)
[2017-09-06] MEDS: ASPIRIN 81 MG CHEW TAB CHEW SCH (08:34)
[2017-09-06] MEDS: FLUoxetine HCL 20 MG CAP PO SCH (08:34)
[2017-09-06] MEDS: busPIRone HCL 5 MG TAB PO SCH ×3 (08:36→21:31)
[2017-09-06] MEDS: REMOVE OLD PATCH T-DERMAL SCH ×2 (09:00→18:00)
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
--- NOTE | 2017-09-06 12:38 | PD.TTN ---
Patient Problems 1. Discharge planning 2. Medication compliance 3. Knowledge deficit 4. Lack of coping skills Progress Toward Goals Provider Present: Dr. Del Sweet Provider Input: 09/05- Pt is being tapered off her controlled substances and her Prozac is being titrated. Psychiatric Counselors Present: CESAR Abdi Psych Therapist Input: 09/05- Pt reports ongoing depression and grief but appears cooperative, appropriate, organized and oriented. She has been compliant with medication regiment. Pt has been utilizing some amount of coping and emotional regulation skills though they appear limited. Pt presents with poor insight into condition and need for care. She is currently homeless and would like assistance with placement. Group Spec/RT/OT/MELENDEZ Present: AL Maguire Group Spec/RT/OT/MELENDEZ Input: 09/05- AL Maguire Pt is a new admit from yesterday and has not attended groups up to this point. Discharge Plan SMA, Homeless plan Pt will likely be linked with homeless plan as she does not want to live at an [facility] and does not have any where to go at this time. Documentation Scribe: CESAR Abdi Jonathan LMHC Sep 06, 2017 12:38
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
[2017-09-06] MEDS ORDERED: LORazepam 2 MG/ML VIAL IM STA (16:31)
[2017-09-06 18:00] VITALS: BP 90/54; PULSE 62; RESP 16; TEMP 97.7; O2SAT 82
--- NOTE | 2017-09-06 19:13 | RADRPT ---
EXAM DATE/TIME: 09/06/2017 18:26 [facility] COMPARISON: No previous studies available for comparison. INDICATIONS : Head pain due to fall or possible seizure. RADIATION DOSE: 56.35 CTDIvol (mGy) MEDICAL HISTORY : Seizures. Chronic obstructive pulmonary disease. Cerebrovascular disease.Cardiac SURGICAL HISTORY : Hysterectomy. Tubal ligation.Cholecystectomy.Chest sx., Aneuryism coil ENCOUNTER: Initial ACUITY: 1 day PAIN SCALE: 1/10 LOCATION: Bilateral cranial TECHNIQUE: Multiple contiguous axial images were obtained of the head. Using automated exposure control and adj ustment of the mA and/or kV according to patient size, radiation dose was kept as low as reasonably a chievable to obtain optimal diagnostic quality images. DICOM format image data is available electro nically for review and comparison. FINDINGS: CEREBRUM: There some diffuse atrophy present. There is some encephalomalacia in the high left posterior frontal region which is unchanged. No acute mass or mass effect is identified. I don't see any evidence of h emorrhage.. POSTERIOR FOSSA: The cerebellum and brainstem are intact. The 4th ventricle is midline. The cerebellopontine angle i s unremarkable. EXTRACRANIAL: The visualized portion of the orbits is intact. SKULL: The calvaria is intact. No evidence of skull fracture. CONCLUSION: Stable encephalomalacia and aneurysm clip. No evidence of hemorrhage, or any acute edema. The patien t did have a small witnessed seizure while the patient was on the table. She recovered quickly and wa s transported back to the room.. Rg Suggs MD on September 06, 2017 at 19:10 Board Certified Radiologist. This report was verified electronically.
[2017-09-06] MEDS: fentaNYL 50 MCG/HR PATCH T-DERMAL SCH (20:41)
[2017-09-07] MEDS: LORazepam 2 MG/ML VIAL IM PRN ×2 (01:40→21:30)
[2017-09-07 06:10] VITALS: BP 86/54; PULSE 54; RESP 18; TEMP 97.5; O2SAT 96
[2017-09-07 07:51] VITALS: BP 108/55; PULSE 61
[2017-09-07] MEDS: oxyCODONE HCL 10 MG CONTROLLED RELEASE TAB PO SCH ×3 (07:58→21:59)
[2017-09-07] MEDS: FLUoxetine HCL 20 MG CAP PO SCH (07:59)
[2017-09-07] MEDS: guaiFENesin E.R. 600 MG TAB PO SCH ×2 (07:59→21:57)
[2017-09-07] MEDS: clonazePAM 1 MG TAB PO SCH ×4 (07:59→21:59)
[2017-09-07] MEDS: busPIRone HCL 5 MG TAB PO SCH ×3 (08:00→21:57)
[2017-09-07] MEDS: ATORVASTATIN 10 MG TAB PO SCH (08:00)
[2017-09-07] MEDS: levETIRAcetam 500 MG TAB PO SCH ×2 (08:00→21:58)
[2017-09-07] MEDS: ASPIRIN 81 MG CHEW TAB CHEW SCH (08:01)
[2017-09-07] MEDS: REMOVE OLD PATCH T-DERMAL SCH (08:02)
[2017-09-07] MEDS: NICOTINE 21 MG/24 HR PATCH T-DERMAL SCH (08:02)
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
--- NOTE | 2017-09-07 08:44 | HHI.PYPN ---
Subjective Remarks Patient seen for follow-up, chart review. Discussion she staff reported the patient had who was reported to be another seizure lasted 35 seconds as per nursing report last night at around 01:40 hours. Patient this morning was found lying in hospital bed, cooperative and noted to be tearful at one point during interview when speaking about her recently . Patient states that she has been feeling "horrible" from her seizures feeling confused and depressed stating that her was recently murdered. Patient states that she does have a daughter for support but that she lives with her in-laws and unable to stay with her daughter at this time. Patient denies having any other support systems at this time. Patient expresses concern of her belongings from her previous residence with her states that the management from her housing at her mood or her belongings and does not know where they are. Patient states that her anxiety continues to be difficult to manage although patient noted to be calm, not noted clinical signs of anxiety or panic during interview. She mentions that she would like to go back to Xanax or Ativan stating that it helps her anxiety as well as controls her seizures. Extensive psychoeducation was provided to patient due to risks of continuing this benzodiazepine use to address anxiety which she acknowledges will continue to request to be put back on these benzodiazepines. Patient this time denies any SI or HI AVH or delusions. Review of Systems Except as stated in HPI: all other systems reviewed are Neg Mental Status Examination Appearance: Other (in hospital attire. Grooming fair.) Consciousness: Alert Orientation: Person, Place (at least) Motor Activity: Other Speech: Unremarkable Language: Adequate Fund of Knowledge: Adequate Attention and Concentration: Easily Distracted Memory: Unremarkable Mood: Sad, Other (remains dysphoric) Affect: Blunt, Other (Does not appear anxious, tearful at times) Thought Process & Associations: Intact Thought Content: Other (Perseverative on obtaining benzodiazepines) Hallucination Type: None Delusion Type: None Suicidal Ideation: No Suicidal Plan: No Suicidal Intention: No Homicidal Ideation: No Homicidal Plan: No Homicidal Intention: No Insight: Fair Judgment: Impulsive Results Vitals/IOs Vital Signs Date Time Temp Pulse Resp B/P (MAP) Pulse Ox O2 Delivery O2 Flow Rate FiO2 09/07/17 07:51 61 108/55 (72) 09/07/17 06:10 97.5 18 96 Intake and Output 09/07/17 09/07/17 09/08/17 08:00 16:00 00:00 Intake Total 480 ml Balance 480 ml Assessment & Plan Problem List: (1) Adjustment reaction ICD Codes: F43.20 - Adjustment disorder, unspecified Status: Acute (2) Rule-out iatrogenic substance use disorder Assessment & Plan Patient at this time continues to report feeling depressed, denies any suicide ideations. Patient with recent loss of her currently and bereavement. She mentions that she continuously has anxiety although now noted to be having any clinical signs of panic or anxiety. Patient with recent episodes of seizures which currently being managed by neurology and is currently on Keppra. Continue recommendations as per primary medical team. Continue current treatment continue current diazepam taper. Discharge planning meeting in progress Justification for Cont. Inpt. At risk for further decompensation if at lower level of care Discharge Planning To be determined Request HC Surrog/Guard Advoc?: No Problem Qualifiers (1) Adjustment reaction: Qualified Codes: F43.23 - Adjustment disorder with mixed anxiety and depressed mood Robinson Nava MD Sep 07, 2017 08:44
--- NOTE | 2017-09-07 15:16 | HHI.PR ---
Review/Management Diagnosis 1. History of seizure disorder. - Probably related to her aneurysmal repair status post embolization with very mild residual right upper extremity weakness. Another likely possibility is Xanax withdrawal seizures 3. Seizure disorder. 4. Hypertension. 5. Hyperlipidemia. 6. Chronic pain. 7. Right below-knee amputation. 8. COPD. Plan 1. Neurological checks q.4h. - I believe the patient needs to be on antiseizure medication given her history of embolization and encephalomalacia in the brain with history of aura and tonic-clonic seizure. - The patient adamantly thinks that Xanax is the best for her anxiety and seizure control and she states that she failed Topamax, Depakote, Dilantin and phenobarbital. She needs to be on scheduled antiseizure medication. 3. Keppra 500 mg twice daily. 4. Seizure precautions. 5. Continue supportive medical therapy. Diagnosis/Plan: Subjective Subjective Comments Reported seizures overnight EEG with no evidence of a seizure activity Patient is adamant that she needs her Xanax, and this is her " best treatment for my seizures", she also wants her pain medication to be back She became emotional during the encounter Active Medications Current Medications Medications (Trade) Dose Ordered Sig/Ariadne Route Start Time Stop Time Status Last Admin Miscellaneous Information 1 Q3D T-DERMAL 09/03/17 18:00 09/03/17 18:00 (Duragesic 50 Mcg Patch.72 Hr) 1 patch Q3D T-DERMAL 09/03/17 18:00 09/06/17 20:41 (Aspirin Chew) 81 mg DAILY CHEW 09/03/17 17:30 09/07/17 08:01 (Lipitor) 10 mg DAILY PO 09/03/17 17:30 09/07/17 08:00 (Mucinex Er) 600 mg BID PO 09/03/17 21:00 09/07/17 07:59 (Duoneb Neb) 1 ampule Q4HR NEB PRN NEB 09/03/17 17:30 (Habitrol 21 Mg Patch.24 Hr) 1 patch DAILY T-DERMAL 09/04/17 09:00 09/07/17 08:02 Miscellaneous Information 1 DAILY T-DERMAL 09/04/17 09:00 09/07/17 08:02 (Prinivil) 5 mg DAILY PO 09/05/17 09:00 Future Hold 09/06/17 08:34 (PROzac) 60 mg DAILY PO 09/04/17 15:30 09/07/17 07:59 (KlonoPIN) 0.75 mg Taper QID PO 09/04/17 18:00 09/12/17 17:59 09/07/17 07:59 (Romazicon Inj) 0.2 mg Q1M PRN IV PUSH 09/04/17 15:45 (Ativan) 1 mg Q4H PRN PO 09/04/17 15:45 (Ativan Inj) 1 mg Q4H PRN IM 09/04/17 15:45 09/07/17 01:40 (Ativan) 2 mg Q2H PRN PO 09/04/17 15:45 (Ativan Inj) 2 mg Q2H PRN IM 09/04/17 15:45 (Ativan Inj) 2 mg Q1H PRN IM 09/04/17 15:45 (Ativan Inj) 2 mg Q15M PRN IM 09/04/17 15:45 (Buspar) 10 mg DAILY@0900,1500,2100 PO 09/05/17 15:00 09/07/17 08:00 (OxyCONTIN CR) 10 mg Q8HR PO 09/05/17 14:00 09/07/17 07:58 (Keppra) 500 mg Q12HR PO 09/05/17 21:00 09/07/17 08:00 Allergies Allergies Coded Allergies Sulfa (Sulfonamide Antibiotics) (Unverified Allergy, Severe, 09/03/17) acetaminophen (Unverified Allergy, Severe, 09/03/17) codeine (Unverified Allergy, Severe, 09/03/17) erythromycin base (Unverified Allergy, Severe, 09/03/17) Review of Systems All other ROS: ROS reviewed as documented in chart Exam I&O / VS Vital Signs Date Time Temp Pulse Resp B/P (MAP) Pulse Ox O2 Delivery O2 Flow Rate FiO2 09/07/17 07:51 61 108/55 (72) 09/07/17 06:10 97.5 54 18 86/54 (65) 96 09/06/17 18:00 97.7 62 16 90/54 (66) 82 Exam Comments GENERAL: She is awake, alert on a wheelchair because of her right below-knee amputation. She does not have her artificial leg on her. Good historian. HEENT: Atraumatic, normocephalic. Intact hearing. Intact vision. NECK: Supple. No signs of meningeal irritation. CARDIOVASCULAR: Regular rate and rhythm. RESPIRATORY: Clear to auscultation. No wheezes. GASTROINTESTINAL: Soft abdomen, nontender. MUSCULOSKELETAL: No clubbing, cyanosis or edema. Right below-knee amputation. NEUROLOGIC: Awake, alert, oriented to time, person and place. No dysarthria, or dysphasia. No cranial nerves palsy. No ptosis or nystagmus. No facial asymmetry. Upper extremities bilateral 5/5. No abnormal movement. Normal tone. Left lower extremity normal motor function. Right lower extremity below-knee amputation. Sensation is intact throughout. Reflexes 1+ bilateral, symmetrical upper extremities and left lower extremity. [id number] is intact bilateral. PSYCHIATRIC: Normal mood and behavior. Occasionally emotional during the encounter. Objective Radiology Results Last [address] 09/06/17 0000 Signed Impressions: Service Date/Time: Wednesday, September 06, 2017 18:26 - CONCLUSION: Stable encephalomalacia and aneurysm clip. No evidence of hemorrhage, or any acute edema. The patient did have a small witnessed seizure while the patient was on the table. She recovered quickly and was transported back to the room.. Rg Suggs MD Brain MRI 09/05/17 0000 Signed Impressions: Service Date/Time: Tuesday, September 05, 2017 10:34 - CONCLUSION: 1. Focal encephalomalacia in the left medial parieto-occipital mid to high convexities with associated gliosis. No evidence for associated mass or mass effect. Overall findings are most consistent with focal chronic infarct. MD Ahsan Jack Raid G. MD Sep 07, 2017 15:16
[2017-09-07 18:00] VITALS: BP 112/58; PULSE 52; RESP 17; TEMP 97.8; O2SAT 94
--- NOTE | 2017-09-07 20:49 | MG ---
cc: LISA LO MD Lab No: Date: 09/07/17 Age: Sex: F Race: DATE OF 1960 MEDICAL HISTORY History of anxiety, COPD, seizures, stroke, dyspnea, wheezing, aneurysm, status post embolization, panic attacks, caffeine use, tobacco use, depression, back surgery, right below-knee amputation in the hospital for psych evaluation, the patient lost her 2 weeks ago. MEDICATIONS 1. Keppra. 2. Klonopin 3. Ativan 4. BuSpar 5. OxyContin 6. Lisinopril 7. Prozac 8. Aspirin 9. Fentanyl patch 10. Lipitor. DESCRIPTION At the beginning of the EEG the background activity is 8-9 Hz alpha located posteriorly superimposed by excess beta activity. During the recording, there was slowing of the background, in the theta range.The EEG is contaminated with excessive movement and muscle artifact. During the recording, there was transition to stage II sleep with appearance of sleep spindles, slowing and K complexes. There were no electrographic seizures or epileptiform discharges noted. Hyperventilation was omitted. Photic stimulation did not elicit a driving response. IMPRESSION This is a normal awake, drowsy and asleep EEG. Beta activity is a nonspecific finding that may be related to medication adverse effect like benzos and barbiturates. There is excessive movement and muscle activity during the recording. There were no electrographic seizures or epileptiform discharges noted during the recording. Clinical correlation is recommended. MD KEYSHA Be/ /7:31 PM /8:26 PM MTDBernie
[2017-09-08 06:00] VITALS: BP 96/57; PULSE 56; RESP 16; TEMP 98.2; O2SAT 95
[2017-09-08] MEDS: oxyCODONE HCL 10 MG CONTROLLED RELEASE TAB PO SCH ×3 (06:00→22:30)
[2017-09-08 08:04] VITALS: BP 114/76; PULSE 67
[2017-09-08] MEDS: levETIRAcetam 500 MG TAB PO SCH (08:07)
[2017-09-08] MEDS: ATORVASTATIN 10 MG TAB PO SCH (08:07)
[2017-09-08] MEDS: REMOVE OLD PATCH T-DERMAL SCH (09:00)
--- NOTE | 2017-09-08 09:44 | HHI.PYPN ---
Subjective Remarks Patient seen for follow-up, chart review. Discussion she staff reported that patient had an alleged seizures last evening which she received Ativan 1 mg 1 last night. It was also reported the patient seemed very sedated throughout the day. Patient was found lying in hospital bed, cooperative. Patient states that she is feeling okay but continues to feel depressed due to "what I'm going through". Patient acknowledges that she has been feeling a sedated throughout the day and agreed to have medication dosage decreased so that she is able to participate in more activity throughout the day. Patient denies any suicide ideations, denies any perceptual disturbances, states that she is looking forward to a cigarette, grandchildren the pizza upon discharge. Patient reports having been visited by her daughter which went well and that her daughters at this time looking to help in possible placement upon discharge. Review of Systems Except as stated in HPI: all other systems reviewed are Neg Mental Status Examination Appearance: Other (in hospital attire. Grooming fair.) Consciousness: Alert Orientation: Person, Place (at least) Motor Activity: Other Speech: Unremarkable Language: Adequate Fund of Knowledge: Adequate Attention and Concentration: Easily Distracted Memory: Unremarkable Mood: Sad, Other (remains dysphoric) Affect: Blunt Thought Process & Associations: Intact, Linear Thought Content: Appropriate Hallucination Type: None Delusion Type: None Suicidal Ideation: No Suicidal Plan: No Suicidal Intention: No Homicidal Ideation: No Homicidal Plan: No Homicidal Intention: No Insight: Fair Judgment: Impulsive Results Vitals/IOs Vital Signs Date Time Temp Pulse Resp B/P (MAP) Pulse Ox O2 Delivery O2 Flow Rate FiO2 09/08/17 08:04 67 114/76 (89) 09/08/17 06:00 98.2 16 95 Intake and Output 09/08/17 09/08/17 09/09/17 08:00 16:00 00:00 Intake Total 0 ml Balance 0 ml Assessment & Plan Problem List: (1) Adjustment reaction ICD Codes: F43.20 - Adjustment disorder, unspecified Status: Acute (2) Rule-out iatrogenic substance use disorder Assessment & Plan Patient at this time continues to report feeling depressed, but denies any suicide ideations. Patient denies that she had been feeling very sedated throughout the day. We'll decrease opiate analgesic to 8 mg by mouth every 12, continue rest of medications. Continue recommendations as per primary medical team and neurology consult. Recent EEG was negative for any seizure activity. There is suspicion the patient is having pseudoseizures in order to obtain benzodiazepines. Patient currently on antiseizure medications as per neurology consult recommendation. We'll continue clonazepam taper. Continue to monitor mood and behavior. Continue to encourage patient to pursue to groups and activities on the unit. Discharge planning in progress Justification for Cont. Inpt. At risk for further decompensation if at lower level of care Discharge Planning To be determined Request HC Surrog/Guard Advoc?: No Problem Qualifiers (1) Adjustment reaction: Qualified Codes: F43.23 - Adjustment disorder with mixed anxiety and depressed mood Robinson Nava MD Sep 08, 2017 09:44
[2017-09-08] MEDS: guaiFENesin E.R. 600 MG TAB PO SCH ×2 (10:08→22:30)
[2017-09-08] MEDS: clonazePAM 1 MG TAB PO SCH (10:08)
[2017-09-08] MEDS: FLUoxetine HCL 20 MG CAP PO SCH (10:09)
[2017-09-08] MEDS: ASPIRIN 81 MG CHEW TAB CHEW SCH (10:09)
[2017-09-08] MEDS: NICOTINE 21 MG/24 HR PATCH T-DERMAL SCH (10:10)
[2017-09-08] MEDS: busPIRone HCL 5 MG TAB PO SCH (10:12)
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
[2017-09-08] MEDS: clonazePAM 0.5 MG TAB PO SCH ×3 (13:21→22:29)
[2017-09-08] MEDS: LORazepam 2 MG/ML VIAL IM PRN ×2 (14:18→19:00)
[2017-09-08 14:28] VITALS: BP 104/64; PULSE 72; RESP 18; TEMP 98.7; O2SAT 97
[2017-09-08] MEDS ORDERED: PILL SPLITTER OTHER PRN (15:30)
[2017-09-08 16:48] VITALS: BP 91/53; PULSE 65; RESP 16; TEMP 97.3; O2SAT 94
[2017-09-08] MEDS: busPIRone HCL 10 MG TAB PO SCH ×2 (17:24→22:34)
[2017-09-08] MEDS: levETIRAcetam 250 MG TAB PO SCH (22:30)
[2017-09-09 06:46] VITALS: BP 132/72; PULSE 68; RESP 15; TEMP 97.9; O2SAT 95
[2017-09-09] MEDS: LORazepam 2 MG/ML VIAL IM PRN (07:23)
[2017-09-09] MEDS: FLUoxetine HCL 20 MG CAP PO SCH (08:03)
[2017-09-09] MEDS: guaiFENesin E.R. 600 MG TAB PO SCH ×2 (08:03→21:22)
[2017-09-09] MEDS: clonazePAM 0.5 MG TAB PO SCH ×4 (08:03→21:22)
[2017-09-09] MEDS: ATORVASTATIN 10 MG TAB PO SCH (08:03)
[2017-09-09] MEDS: levETIRAcetam 250 MG TAB PO SCH ×2 (08:04→21:22)
[2017-09-09] MEDS: ASPIRIN 81 MG CHEW TAB CHEW SCH (08:04)
[2017-09-09] MEDS: oxyCODONE HCL 10 MG CONTROLLED RELEASE TAB PO SCH ×2 (08:05→21:22)
[2017-09-09] MEDS: busPIRone HCL 10 MG TAB PO SCH ×3 (08:05→21:24)
[2017-09-09] MEDS: NICOTINE 21 MG/24 HR PATCH T-DERMAL SCH (08:06)
[2017-09-09] MEDS: REMOVE OLD PATCH T-DERMAL SCH ×2 (08:06→16:03)
[2017-09-09] MEDS ORDERED: LORazepam 2 MG/ML VIAL IV PUSH PRN (08:15)
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
[2017-09-09] MEDS ORDERED: IBUPROFEN 400 MG TAB PO PRN (08:30)
--- NOTE | 2017-09-09 09:02 | HHI.PYPN ---
Subjective Remarks Patient seen for follow-up, chart review. Patient found lying in hospital bed, cooperative. Patient states the last evening she had "a few seizures last night ". Patient states that she had difficult to sleeping last evening and woke up today with a headache. Patient reports that her mood is "lousy" continues report feeling depressed but not having any suicidal ideations. Patient stated that she looks forward to visiting with her family today and her daughter is continually exploring options of having patient to reside somewhere postdischarge. Review of Systems Except as stated in HPI: all other systems reviewed are Neg Mental Status Examination Appearance: Other (in hospital attire. Grooming fair.) Consciousness: Alert Orientation: Person, Place (at least) Motor Activity: Other Speech: Unremarkable Language: Adequate Fund of Knowledge: Adequate Attention and Concentration: Easily Distracted Memory: Unremarkable Mood: Sad Affect: Sad Thought Process & Associations: Intact, Goal directed, Linear Thought Content: Appropriate Hallucination Type: None Delusion Type: None Suicidal Ideation: No Suicidal Plan: No Suicidal Intention: No Homicidal Ideation: No Homicidal Plan: No Homicidal Intention: No Insight: Fair Judgment: Impulsive Results Labs Test 09/08/17 16:40 Vitals/IOs Vital Signs Date Time Temp Pulse Resp B/P (MAP) Pulse Ox O2 Delivery O2 Flow Rate FiO2 09/09/17 06:46 97.9 68 15 132/72 (92) 95 Intake and Output 09/09/17 09/09/17 09/10/17 08:00 16:00 00:00 Intake Total 480 ml Balance 480 ml Assessment & Plan Problem List: (1) Adjustment reaction ICD Codes: F43.20 - Adjustment disorder, unspecified Status: Acute (2) Rule-out iatrogenic substance use disorder Assessment & Plan Patient at this time continues report feeling depressed but not having suicidal ideations at this time. Patient continues to report having episodes of seizures although has been noted by staff as well as physician underwriter to have no clinical signs of postictal state after the alleged seizure. Patient continues to be followed by Dr. Jones neurologist to has made recommendations for seizure control. Continue clonazepam taper, increase Loxitane to 80 mg by mouth daily for depression continue rest of medications. Continue to monitor mood and behavior. Discharge planning in progress Justification for Cont. Inpt. At risk for further decompensation if at lower level of care Discharge Planning To be determined Request HC Surrog/Guard Advoc?: No Problem Qualifiers (1) Adjustment reaction: Qualified Codes: F43.23 - Adjustment disorder with mixed anxiety and depressed mood Robinson Nava MD Sep 09, 2017 09:02
[2017-09-09] MEDS: fentaNYL 50 MCG/HR PATCH T-DERMAL SCH (16:03)
[2017-09-09] MEDS ORDERED: NALOXONE HCL 0.4 MG/ML AMP ONE (17:56)
[2017-09-09] MEDS ORDERED: NALOXONE HCL 0.4 MG/ML AMP IV PUSH PRN (18:15)
--- NOTE | 2017-09-09 18:47 | HHI.FPPN ---
Addendum to progress note ADDENDUM Reason for addendum: Additonal documentation Additional information S: [facility] announced overhead in ED. Residents responded to bedside in [address] [place] [address] [place] to Rm [id number] approx 5:50PM where Ms Cruz was lethargic with partial rebreather mask on, eyes partly open. We were told by [facility] nurse and staff that pt had fentanyl patch replaced at 1603 hours along with doses of Klonopin and Busipirone. Staff could not locate the old fentanyl patch when the new one was administered. Then just prior to 6PM the pt suddenly became obtunded and hard to rouse. O: Pt vitals during [facility]: HR 68 / BP 132/73 / O2 Sat 94% / RR 10-12 Vital Signs Date Time Temp Pulse Resp B/P (MAP) Pulse Ox O2 Delivery O2 Flow Rate FiO2 09/09/17 17:15 18 09/09/17 06:46 97.9 68 132/72 (92) 95 Physical Exam GENERAL: Well-nourished, well-developed patient unresponsive to commands, arms and legs partially contracted and attempting to pull off lines. SKIN: Warm and dry. HEAD: Normocephalic. EYES: No scleral icterus. No injection or drainage. Eyes half-open. Pupils 2mm NECK: Supple, trachea midline. No lymphadenopathy. CARDIOVASCULAR: Regular rate and rhythm without murmur, gallop, or rub. RESPIRATORY: Breath sounds equal bilaterally but reduced RR. No accessory muscle use. GASTROINTESTINAL: Abdomen soft, non-tender, nondistended. EXTREMITIES: No cyanosis, or edema. Right BKA. NEUROLOGICAL: Lethargic. Not oriented. A/P: 57 YO female w/Hx depression and SI becomes lethargic and obtunded approx an hour after fentanyl patch is changed and old patch cannot be found, likely opioid overdose. PLAN: -Narcan 0.4mg injection -Ordered Narcan 0.4mg inj PRN -Find missing fentanyl patch Pt seen and dw Dr Kathrine York,Lee Goodman MD R1 Sep 09, 2017 18:47
[2017-09-10 06:00] VITALS: BP 98/70; PULSE 66; RESP 15; TEMP 97.9; O2SAT 93
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
[2017-09-10] MEDS: REMOVE OLD PATCH T-DERMAL SCH (09:00)
[2017-09-10] MEDS: clonazePAM 0.5 MG TAB PO SCH ×4 (09:00→21:00)
[2017-09-10] MEDS: ASPIRIN 81 MG CHEW TAB CHEW SCH (09:50)
[2017-09-10] MEDS: NICOTINE 21 MG/24 HR PATCH T-DERMAL SCH (09:50)
[2017-09-10] MEDS: FLUoxetine HCL 20 MG CAP PO SCH (09:50)
[2017-09-10] MEDS: ATORVASTATIN 10 MG TAB PO SCH (09:50)
[2017-09-10] MEDS: guaiFENesin E.R. 600 MG TAB PO SCH ×2 (09:50→21:00)
[2017-09-10] MEDS: levETIRAcetam 250 MG TAB PO SCH ×2 (09:51→21:00)
[2017-09-10] MEDS: busPIRone HCL 10 MG TAB PO SCH ×3 (09:52→21:00)
--- NOTE | 2017-09-10 10:13 | HHI.PYPN ---
Subjective Remarks Patient seen for follow, chart reviewed. Discussion she staff reported the patient yesterday had a Amber at activated at the patient was found unresponsive he was suspected the patient had eaten or ingested her fentanyl patch which Narcan was given the patient immediately responded. Patient not having any pseudoseizures last evening. Patient was found his assisted to make for various phone calls in the morning but was interviewed in her room and found lying in hospital bed, cooperative. Patient states that she denies having ingested the patch although was not able to state weren't the previous patch is as it had not been located by staff. Importance of avoiding and deviation from administration of medications especially narcotics was reviewed with the patient which she knowledge. Patient reports continues to feel "good" and feeling depressed but denies any suicidal ideations at this time. Patient states that she is hopeful she is able to find a place with her daughter but also considering maybe staying with a friend postdischarge. Review of Systems Except as stated in HPI: all other systems reviewed are Neg Mental Status Examination Appearance: Disheveled, Other (in hospital attire. Grooming fair.) Consciousness: Alert Orientation: Person, Place (at least) Motor Activity: Other Speech: Unremarkable Language: Adequate Fund of Knowledge: Adequate Attention and Concentration: Easily Distracted Memory: Unremarkable Mood: Sad Affect: Labile Thought Process & Associations: Intact, Goal directed, Linear Thought Content: Appropriate Hallucination Type: None Delusion Type: None Suicidal Ideation: No Suicidal Plan: No Suicidal Intention: No Homicidal Ideation: No Homicidal Plan: No Homicidal Intention: No Insight: Fair Judgment: Impulsive Results Vitals/IOs Vital Signs Date Time Temp Pulse Resp B/P (MAP) Pulse Ox O2 Delivery O2 Flow Rate FiO2 09/10/17 06:00 97.9 66 15 98/70 (79) 93 Intake and Output 09/10/17 09/10/17 09/11/17 08:00 16:00 00:00 Intake Total 840 ml Balance 840 ml Assessment & Plan Problem List: (1) Adjustment reaction ICD Codes: F43.20 - Adjustment disorder, unspecified Status: Acute (2) Rule-out iatrogenic substance use disorder Assessment & Plan Patient at this time continues report feeling depressed but not having any suicidal ideations at this time. Patient yesterday had what appears to have ingested her fentanyl patch noted to receive intoxicating effects from the opiate and had rapid response team had to be activated as patient was found unresponsive and was given Narcan which patient to be oddly responded to. We' ll discontinue fentanyl patch to avoid future episode of patient trying to ingest this. Due to current care for now and continue benzodiazepine taper. Continue recommendations as per primary medical team. Discharge planning in progress Justification for Cont. Inpt. At risk for further decompensation if at lower level of care Discharge Planning To be determined Request HC Surrog/Guard Advoc?: No Problem Qualifiers (1) Adjustment reaction: Qualified Codes: F43.23 - Adjustment disorder with mixed anxiety and depressed mood Robinson Nava MD Sep 10, 2017 10:13
[2017-09-10] MEDS: oxyCODONE HCL 10 MG CONTROLLED RELEASE TAB PO SCH ×2 (10:26→21:00)
[2017-09-10 18:57] VITALS: BP 90/50; PULSE 63; RESP 16; TEMP 98.1; O2SAT 93
[2017-09-10 22:49] VITALS: BP 115/52; PULSE 58; RESP 17; TEMP 97.8; O2SAT 98
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
[2017-09-11] MEDS: REMOVE OLD PATCH T-DERMAL SCH (09:00)
--- NOTE | 2017-09-11 09:00 | HHI.PYPN ---
Subjective Remarks Patient seen for follow-up, chart reviewed. Discussion she staff reported the patient when of having alleged seizure last evening nurse and stated that she was going to go get her medications immediately had cessation of's seizure-like behavior started back to nurse agreeing. Patient was found lying in hospital bed, cooperative. Patient noted to be not in acute distress. Patient states that her mood has been "horrible" stating that she did not feel depressed and denying suicidal ideations. Patient denies any perceptual disturbances or delusions. Patient does mention having had 2 seizures last evening but did not elaborate. Patient states that she had tried to call her daughter last evening but is awaiting a visit for her her today. Review of Systems Except as stated in HPI: all other systems reviewed are Neg Mental Status Examination Appearance: Disheveled, Other (in hospital attire. Grooming fair.) Consciousness: Alert Orientation: Person, Place, Date/Time Motor Activity: Other Speech: Unremarkable Language: Adequate Fund of Knowledge: Adequate Attention and Concentration: Easily Distracted Memory: Unremarkable Mood: Sad Affect: Appropriate Thought Process & Associations: Intact, Goal directed, Linear Thought Content: Appropriate Hallucination Type: None Delusion Type: None Suicidal Ideation: No Suicidal Plan: No Suicidal Intention: No Homicidal Ideation: No Homicidal Plan: No Homicidal Intention: No Insight: Fair Judgment: Impulsive Results Vitals/IOs Vital Signs Date Time Temp Pulse Resp B/P (MAP) Pulse Ox O2 Delivery O2 Flow Rate FiO2 09/10/17 22:49 97.8 58 17 115/52 (73) 98 Intake and Output 09/11/17 09/11/17 09/12/17 08:00 16:00 00:00 Intake Total 0 ml 120 ml Balance 0 ml 120 ml Assessment & Plan Problem List: (1) Adjustment reaction ICD Codes: F43.20 - Adjustment disorder, unspecified Status: Acute (2) Rule-out iatrogenic substance use disorder Assessment & Plan Patient this time continues report feeling depressed with 90 suicidal ideations. Patient continues on benzodiazepine taper as well as discharge planning to possible family members. Patient continues to be medication seeking. Continue current treatment. Continue recommendations as per primary medical team. Discharge planning in progress Justification for Cont. Inpt. At risk for further decompensation if at lower level of care Discharge Planning Patient to be discharged to family members once medically and psychiatrically stable Request HC Surrog/Guard Advoc?: No Problem Qualifiers (1) Adjustment reaction: Qualified Codes: F43.23 - Adjustment disorder with mixed anxiety and depressed mood Robinson Nava MD Sep 11, 2017 09:00
[2017-09-11] MEDS: NICOTINE 21 MG/24 HR PATCH T-DERMAL SCH (10:27)
[2017-09-11] MEDS: clonazePAM 0.5 MG TAB PO SCH ×4 (10:27→20:55)
[2017-09-11] MEDS: FLUoxetine HCL 20 MG CAP PO SCH (10:28)
[2017-09-11] MEDS: oxyCODONE HCL 10 MG CONTROLLED RELEASE TAB PO SCH ×2 (10:28→20:56)
[2017-09-11] MEDS: ATORVASTATIN 10 MG TAB PO SCH (10:28)
[2017-09-11] MEDS: guaiFENesin E.R. 600 MG TAB PO SCH ×2 (10:28→20:55)
[2017-09-11] MEDS: ASPIRIN 81 MG CHEW TAB CHEW SCH (10:28)
[2017-09-11] MEDS: busPIRone HCL 10 MG TAB PO SCH ×3 (10:29→20:55)
[2017-09-11] MEDS: levETIRAcetam 250 MG TAB PO SCH ×2 (10:29→20:55)
[2017-09-11 18:02] VITALS: BP 98/53; PULSE 60; RESP 16; TEMP 98.2; O2SAT 97
[2017-09-11 21:43] VITALS: BP 119/59; PULSE 60; RESP 16; TEMP 97.9; O2SAT 95
[2017-09-12 05:47] VITALS: BP 105/58; PULSE 56; RESP 15; TEMP 98.1; O2SAT 93
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
[2017-09-12] MEDS: REMOVE OLD PATCH T-DERMAL SCH ×2 (09:00→18:00)
[2017-09-12] MEDS: NICOTINE 21 MG/24 HR PATCH T-DERMAL SCH (09:00)
[2017-09-12] MEDS: ASPIRIN 81 MG CHEW TAB CHEW SCH (09:09)
[2017-09-12] MEDS: guaiFENesin E.R. 600 MG TAB PO SCH ×2 (09:09→20:59)
[2017-09-12] MEDS: FLUoxetine HCL 20 MG CAP PO SCH (09:09)
[2017-09-12] MEDS: oxyCODONE HCL 10 MG CONTROLLED RELEASE TAB PO SCH ×2 (09:10→20:59)
[2017-09-12] MEDS: clonazePAM 0.5 MG TAB PO SCH ×2 (09:11→13:00)
[2017-09-12] MEDS: ATORVASTATIN 10 MG TAB PO SCH (09:11)
[2017-09-12] MEDS: busPIRone HCL 10 MG TAB PO SCH ×3 (09:30→20:59)
[2017-09-12] MEDS: levETIRAcetam 250 MG TAB PO SCH ×2 (10:00→20:59)
--- NOTE | 2017-09-12 13:00 | HHI.PYPN ---
Subjective Remarks Patient seen and examined. Chart reviewed. I note patient has had EEG, which was negative for epileptiform discharges. I note [facility] from 09/09 and concern for possible ingestion of fentanyl patch. Fentanyl patches have since been discontinued. Patient continue on Klonopin taper. Case discussed with RN. Case discussed in treatment team. Per nurse, patient has been no behavioral problem overnight. She had no spells overnight. On my exam this morning, patient is in good spirits. She denies SI/HI. She reports improved mood versus admission and decreased anxiety. She acknowledges to some degree that her substance use prior to admission was problematic. She says, for example "I wouldn't have agreed with you about the Xanax a week ago, but now I do." Despite this seemingly improved insight, patient still tries to get me to increase her Oxycontin dose, if only temporarily. She does not presently appear to be in pain. She is more alert and considerably more interactive and less narcotized than when I last saw her before the weekend. She reports going home with daughter is not an option but is open to independent living (see below ). Review of Systems Except as stated in HPI: all other systems reviewed are Neg Mental Status Examination Appearance: Appropriate Consciousness: Alert Orientation: x4 Motor Activity: Other (No motoric abnormalities noted. No ictal activity noted.) Speech: Unremarkable Language: Adequate Fund of Knowledge: Adequate Attention and Concentration: Adequate Memory: Unremarkable Mood: Other (Mood improved versus admission, anxiety decreased) Affect: Appropriate Thought Process & Associations: Intact, Logical, Goal directed, Linear Thought Content: Appropriate Hallucination Type: None Delusion Type: None Suicidal Ideation: No Suicidal Plan: No Suicidal Intention: No Homicidal Ideation: No Homicidal Plan: No Homicidal Intention: No Insight: Fair Judgment: Adequate (fair) Results Labs Labs reviewed. PRL wnl. Vitals/IOs Vital Signs Date Time Temp Pulse Resp B/P (MAP) Pulse Ox O2 Delivery O2 Flow Rate FiO2 09/12/17 05:47 98.1 56 15 105/58 (74) 93 Intake and Output 09/12/17 09/12/17 09/13/17 08:00 16:00 00:00 Intake Total 240 ml 240 ml Balance 240 ml 240 ml Assessment & Plan Problem List: (1) Adjustment reaction ICD Codes: F43.20 - Adjustment disorder, unspecified Status: Acute (2) Rule-out iatrogenic substance use disorder Assessment & Plan Continue Prozac and BuSpar as ordered. Patient is due to complete Klonopin taper today and has no signs of withdrawal presently. Continue Keppra as ordered. Continue OxyContin 10mg q12h. Hospitalist and oncology input noted and appreciated. Continue other medications and care as ordered. I have cautioned the patient not to resume her prior to admission controlled substance regimen after discharge as she would be at high risk for unintentional intoxication/overdose if she were to do so. I have encouraged chem dep evaluation and treatment as well as grief counseling after discharge, and I have asked counselor to provide appropriate referrals. Justification for Cont. Inpt. Risk for decompensation in less restrictive environment Discharge Planning Counselor reports that the patient has been accepted at [facility] tomorrow , Monday. Request HC Surrog/Guard Advoc?: No Problem Qualifiers (1) Adjustment reaction: Qualified Codes: F43.23 - Adjustment disorder with mixed anxiety and depressed mood Holden Sweet MD Sep 12, 2017 13:00
[2017-09-12 16:41] VITALS: BP 115/62; PULSE 52; RESP 18; O2SAT 97
--- NOTE | 2017-09-12 17:38 | HHI.PR ---
Review/Management Diagnosis 1. History of seizure disorder. - Probably related to her aneurysmal repair status post embolization with very mild residual right upper extremity weakness. Another likely possibility is Xanax withdrawal seizures 3. Seizure disorder. 4. Hypertension. 5. Hyperlipidemia. 6. Chronic pain. 7. Right below-knee amputation. 8. COPD. Plan - I believe the patient needs to be on antiseizure medication given her history of embolization and encephalomalacia in the brain with history of aura and tonic-clonic seizure. - The patient adamantly thinks that Xanax is the best for her anxiety and seizure control and she states that she failed Topamax, Depakote, Dilantin and phenobarbital. She needs to be on scheduled antiseizure medication. 3. Keppra 500 mg twice daily. 4. Seizure precautions. 5. Continue supportive medical therapy. 6. Follow up outpatient neurology and work on a video EEG monitoring to characterize these episodes Diagnosis/Plan: Subjective Subjective Comments I received a call from RN, that they need neurologic clearance for the patient Given a non focal neurologic exam and no acute intracranial neurologic abnormality on neurologic investigations , I recommend patient to continue on Keppra current dose and follow up with neurology as outpatient in 4 weeks Seizure precautions Patient will need an outpatient video monitoring to evaluate and characterize these episodes Active Medications Current Medications Medications (Trade) Dose Ordered Sig/Ariadne Route Start Time Stop Time Status Last Admin Miscellaneous Information 1 Q3D T-DERMAL 09/03/17 18:00 09/09/17 16:03 (Aspirin Chew) 81 mg DAILY CHEW 09/03/17 17:30 09/12/17 09:09 (Lipitor) 10 mg DAILY PO 09/03/17 17:30 09/12/17 09:11 (Mucinex Er) 600 mg BID PO 09/03/17 21:00 09/12/17 09:09 (Duoneb Neb) 1 ampule Q4HR NEB PRN NEB 09/03/17 17:30 (Habitrol 21 Mg Patch.24 Hr) 1 patch DAILY T-DERMAL 09/04/17 09:00 09/12/17 09:00 Miscellaneous Information 1 DAILY T-DERMAL 09/04/17 09:00 09/12/17 09:00 (Prinivil) 5 mg DAILY PO 09/05/17 09:00 Future Hold 09/06/17 08:34 (Romazicon Inj) 0.2 mg Q1M PRN IV PUSH 09/04/17 15:45 (Ativan) 1 mg Q4H PRN PO 09/04/17 15:45 (Ativan Inj) 1 mg Q4H PRN IM 09/04/17 15:45 09/09/17 07:23 (Ativan) 2 mg Q2H PRN PO 09/04/17 15:45 (Ativan Inj) 2 mg Q2H PRN IM 09/04/17 15:45 (Ativan Inj) 2 mg Q1H PRN IM 09/04/17 15:45 (Ativan Inj) 2 mg Q15M PRN IM 09/04/17 15:45 (OxyCONTIN CR) 10 mg Q12HR PO 09/08/17 21:00 09/12/17 09:10 (Buspar) 10 mg DAILY@0900,1500,2100 PO 09/08/17 15:00 09/12/17 15:00 (KlonoPIN) 0.25 mg Taper QID PO 09/08/17 13:00 09/12/17 17:59 09/12/17 13:00 (Keppra) 750 mg Q12HR PO 09/08/17 21:00 09/12/17 10:00 (Pill Splitter) 1 ea UNSCH PRN OTHER 09/08/17 15:30 (Ativan Inj) 2 mg Q10M PRN IV PUSH 09/09/17 08:15 (Motrin) 400 mg Q8H PRN PO 09/09/17 08:30 (PROzac) 80 mg DAILY PO 09/10/17 09:00 09/12/17 09:09 (Narcan Inj) 0.4 mg UNSCH X1 PRN IV PUSH 09/09/17 18:15 09/12/17 18:14 09/09/17 18:16 Allergies Allergies Coded Allergies Sulfa (Sulfonamide Antibiotics) (Unverified Allergy, Severe, 09/03/17) acetaminophen (Unverified Allergy, Severe, 09/03/17) codeine (Unverified Allergy, Severe, 09/03/17) erythromycin base (Unverified Allergy, Severe, 09/03/17) Review of Systems All other ROS: ROS reviewed as documented in chart Exam I&O / VS 1/09/12/17 09/13/17 15:00 23:00 07:00 Intake Total 960 ml Balance 960 ml Intake Oral 960 ml Vital Signs Date Time Temp Pulse Resp B/P (MAP) Pulse Ox O2 Delivery O2 Flow Rate FiO2 09/12/17 16:41 52 18 115/62 (79) 97 09/12/17 05:47 98.1 56 15 105/58 (74) 93 09/11/17 21:43 97.9 60 16 119/59 (79) 95 09/11/17 18:02 98.2 60 16 98/53 (68) 97 Brian Foreman MD Sep 12, 2017 17:38
[2017-09-12 18:48] VITALS: BP 115/62; PULSE 56; RESP 16; TEMP 98.2; O2SAT 94
[2017-09-13 05:18] VITALS: BP 124/60; PULSE 59; RESP 15; TEMP 97.3; O2SAT 94
[2017-09-13] MEDS ORDERED: FLUO20CA12 PO (07:55)
[2017-09-13] MEDS ORDERED: LEVE250 PO (07:55)
[2017-09-13] MEDS ORDERED: BUSP10TA PO (07:55)
[2017-09-13] MEDS ORDERED: OXYC-103 PO (07:55)
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
[2017-09-13] MEDS: REMOVE OLD PATCH T-DERMAL SCH (09:00)
[2017-09-13] MEDS: NICOTINE 21 MG/24 HR PATCH T-DERMAL SCH (09:00)
[2017-09-13] MEDS: oxyCODONE HCL 10 MG CONTROLLED RELEASE TAB PO SCH (09:17)
[2017-09-13] MEDS: guaiFENesin E.R. 600 MG TAB PO SCH (09:17)
[2017-09-13] MEDS: ATORVASTATIN 10 MG TAB PO SCH (09:18)
[2017-09-13] MEDS: FLUoxetine HCL 20 MG CAP PO SCH (09:18)
[2017-09-13] MEDS: ASPIRIN 81 MG CHEW TAB CHEW SCH (09:18)
[2017-09-13] MEDS: levETIRAcetam 250 MG TAB PO SCH (09:18)
[2017-09-13] MEDS: busPIRone HCL 10 MG TAB PO SCH (09:27)
== END 2017-09-13 13:55 | disposition home or self-care (01) | DRG 882 ==
LOC: NEPD 06:16 → NEDA 15:41 → H260 16:37 → H4EA 09-06 16:56
PROVIDERS: ADMIT Psychiatry & Neurology Psychiatry; ATTEND Psychiatry & Neurology Psychiatry
DX: F43.23 Adjustment disorder with mixed anxiety and depressed mood (principal); G93.89 Other specified disorders of brain; R45.851 Suicidal ideations; F13.239 Sedative, hypnotic or anxiolytic dependence with withdrawal, unspecified; I10 Essential (primary) hypertension; F43.10 Post-traumatic stress disorder, unspecified; R47.81 Slurred speech; G47.9 Sleep disorder, unspecified; Z89.511 Acquired absence of right leg below knee; Z63.4 Disappearance and death of family member; Z86.79 Personal history of other diseases of the circulatory system; Z86.61 Personal history of infections of the central nervous system; J44.9 Chronic obstructive pulmonary disease, unspecified; F17.210 Nicotine dependence, cigarettes, uncomplicated; E78.5 Hyperlipidemia, unspecified; G89.21 Chronic pain due to trauma; B19.20 Unspecified viral hepatitis C without hepatic coma; I69.344 Monoplegia of lower limb following cerebral infarction affecting left non-dominant side; G43.909 Migraine, unspecified, not intractable, without status migrainosus; F44.5 Conversion disorder with seizures or convulsions; H57.04 Mydriasis; Z59.0 Homelessness
CPT/HCPCS: 70450; 70551; 71045; 71275; 76937; 80053; 80061; 81001; 82550; 83036; 83735; 83880; 84100; 84146; 84439; 84443; 84484; 85025; 85379; 85610; 85730; 93005; 94150; 94664; 95819; 96372; 99285; J1885; J2060; J2310; Q9967

== ENCOUNTER 2017-12-26 14:03 | Inpatient (IN) | payer OTHER ==
[~2017-12-26] VITALS: Ht 182.9 cm; Wt 53.0 kg
[~2017-12-26 14:03] MED LIST changes: +BUSP10TA PO; -FENT50DI T-DERMAL; +FLUO20CA12 PO; +LEVE250 PO; +LIPI10TA PO; +OXYC-103 PO; -OXYC-426 PO; -XANA2TAB2 PO
[2017-12-26] MEDS ORDERED: MAGNESIUM HYDROXIDE SUSP 30 ML CUP PO PRN (17:45)
[2017-12-26] MEDS ORDERED: diphenhydrAMINE HCL 50 MG CAP PO PRN (17:45)
[2017-12-26] MEDS ORDERED: hydrOXYzine HCL 50 MG TAB PO PRN (17:45)
[2017-12-26] MEDS ORDERED: ALUMINUM/MAGNESIUM/SIMETH 30 ML CUP PO PRN (17:45)
[2017-12-26 18:32] VITALS: BP 87/57; PULSE 92; RESP 16; TEMP 97.8; O2SAT 98
[2017-12-26] MEDS ORDERED: IBUPROFEN 600 MG TAB PO STA (20:41)
[2017-12-26] MEDS: busPIRone HCL 10 MG TAB PO SCH (21:28)
[2017-12-26] MEDS: levETIRAcetam 250 MG TAB PO SCH (21:29)
[2017-12-26] MEDS: NICOTINE 21 MG/24 HR PATCH T-DERMAL SCH (21:43)
[2017-12-27 06:23] VITALS: BP 118/69; PULSE 92; RESP 18; TEMP 97.6; O2SAT 97
[2017-12-27] MEDS: IBUPROFEN 600 MG TAB PO PRN ×3 (06:48→21:01)
[2017-12-27] MEDS: FLUoxetine HCL 20 MG CAP PO SCH (08:49)
[2017-12-27] MEDS: busPIRone HCL 10 MG TAB PO SCH ×3 (08:50→20:59)
[2017-12-27] MEDS: ASPIRIN 81 MG CHEW TAB CHEW SCH (08:50)
[2017-12-27] MEDS: REMOVE OLD PATCH T-DERMAL SCH (08:50)
[2017-12-27] MEDS: levETIRAcetam 250 MG TAB PO SCH ×2 (08:50→20:59)
[2017-12-27] MEDS: NICOTINE 21 MG/24 HR PATCH T-DERMAL SCH (08:50)
[2017-12-27] MEDS: ATORVASTATIN 10 MG TAB PO SCH (08:50)
[2017-12-27 09:28] LABS: BICARBONATE 23.3 MEQ/L (21.0-32.0); BLOOD UREA NITROGEN 15 MG/DL (7-18); CALCIUM 8.5 MG/DL (8.5-10.1); CHLORIDE 103 MEQ/L (98-107); CREATININE 0.93 MG/DL (0.50-1.00); GLOMERULAR FILTRATION RATE 62 ML/MIN (>89); GLUCOSE,RANDOM 82 MG/DL (74-106); SODIUM (NA) 137 MEQ/L (136-145)
[2017-12-27 09:39] LABS: CHOLESTEROL 134 MG/DL (120-200); CHOLESTEROL/ HDL RATIO 2.26 RATIO; HDL CHOLESTEROL 59.2 MG/DL (40.0-60.0); LDL CHOLESTEROL 36 MG/DL (0-99); TRIGLYCERIDES 193 MG/DL (42-150)
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
[2017-12-27] MEDS ORDERED: RESP: ALBUTEROL 2.5 MG/IPRATROPIUM 0.5 MG NEB (PRN) NEB (14:00)
[2017-12-27 15:33] LABS: HEMOGLOBIN A1C 5.3 % (4.3-6.0)
[2017-12-27] MEDS ORDERED: traZODone HCL 50 MG TAB PO PRN (16:15)
[2017-12-27 17:51] VITALS: BP 128/61; PULSE 91; RESP 18; TEMP 98.6; O2SAT 96
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
[2017-12-28 05:28] VITALS: BP 139/66; PULSE 86; RESP 16; TEMP 97.8; O2SAT 96
[2017-12-28 06:22] VITALS: RESP 22
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
[2017-12-28] MEDS: FLUoxetine HCL 20 MG CAP PO SCH (08:01)
[2017-12-28] MEDS: ASPIRIN 81 MG CHEW TAB CHEW SCH (08:01)
[2017-12-28] MEDS: busPIRone HCL 10 MG TAB PO SCH (08:02)
[2017-12-28] MEDS: levETIRAcetam 250 MG TAB PO SCH (08:02)
[2017-12-28] MEDS: ATORVASTATIN 10 MG TAB PO SCH (08:02)
[2017-12-28] MEDS: REMOVE OLD PATCH T-DERMAL SCH (09:00)
[2017-12-28] MEDS: NICOTINE 21 MG/24 HR PATCH T-DERMAL SCH (09:00)
[2017-12-28] MEDS ORDERED: OXYC-103 PO (09:28)
[2017-12-28] MEDS ORDERED: TRAZ50TA12 PO (11:06)
--- NOTE | 2017-12-28 14:27 | EKG ---
Date Performed: 12/27/2017 Time Performed: 14:00:54 PTAGE: 57 years EKG: Sinus rhythm NORMAL ECG Since the PREVIOUS TRACING , no significant change noted PREVIOUS TRACIN09/02/2017 22.46 DOCTOR: Basilia Mckinney Interpretating Date/Time 12/28/2017 14:21:19
== END 2017-12-28 12:30 | disposition short-term general hospital (02) | DRG 880 ==
LOC: H260 16:43
PROVIDERS: ADMIT Student in an Organized Health Care Education/Training Program; ATTEND Student in an Organized Health Care Education/Training Program
DX: F41.9 Anxiety disorder, unspecified (principal); F19.90 Other psychoactive substance use, unspecified, uncomplicated; T50.904A Poisoning by unspecified drugs, medicaments and biological substances, undetermined, initial encounter; R56.9 Unspecified convulsions; F32.9 Major depressive disorder, single episode, unspecified; F43.10 Post-traumatic stress disorder, unspecified; J44.9 Chronic obstructive pulmonary disease, unspecified; I10 Essential (primary) hypertension; G54.6 Phantom limb syndrome with pain; G89.21 Chronic pain due to trauma; B19.20 Unspecified viral hepatitis C without hepatic coma; F17.210 Nicotine dependence, cigarettes, uncomplicated; Z89.511 Acquired absence of right leg below knee; Z86.73 Personal history of transient ischemic attack (TIA), and cerebral infarction without residual deficits
CPT/HCPCS: 80048; 80061; 83036; 84443; 93005

== ENCOUNTER 2018-01-05 18:57 | Emergency (ER) | payer OTHER ==
[~2018-01-05] VITALS: Ht 182.9 cm; Wt 55.0 kg
[~2018-01-05 18:57] MED LIST changes: +TRAZ50TA12 PO
[2018-01-05 19:10] VITALS: BP 141/74; PULSE 70; RESP 18; TEMP 98.8; O2SAT 98
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
[2018-01-06 06:49] VITALS: BP 154/68; PULSE 60; RESP 18; TEMP 98; O2SAT 95
--- NOTE | 2018-01-06 09:59 | PD ---
History of Present Illness Chief Complaint: Psychiatric Symptoms Time Seen by Provider: 09:30 Travel History International Travel<30 Days: No Contact w/Intl Traveler<30days: No Known affected area: No Legal Status Legal Status: Involuntary Salazar Act Signed By: MD ABIMBOLA [facility] History of Present Illness: History of Present Illness HPI 57-year-old white female, residing at [facility], with history of anxiety disorder substance use disorder, namely opiates and benzos, who presents under an involuntary status, as a transfer from [facility] after being medically cleared for benzo withdrawal . As per records received from the hospital the patient was taken to the emergency department by her daughter after she found her to be confused and hallucinating. Patient reports that she was talking to people that were not there and she was also talking to her . She states that she was aware that she was hallucinating because she knew that those people were not real. Patient states that she was using chemicals to get rid of bedbugs in her residence and believes that the fumes caused her hallucinations. She denied that she took any extra medication or that she had taken any other substances Electronic medical record is reviewed. Patient was treated at [facility] December 26 and discharged December 28 brought in under Salazar act due to multiple drug use and overdose. It was determined that this was not a suicidal attempt but rather an unintentional overdose. When patient was discharged from our inpatient unit she was not provided with prescriptions for benzodiazepine but it appears that patient has continued to take Xanax as well as opiates for pain management. Patient is seen in J pod. Case is discussed with the nurses. Patient is found eating her breakfast. She is alert, oriented, calm and cooperative. Her speech is clear, logical, goal directed and of normal rate and tone. Patient denies any hallucinations and does not appear internally stimulated. Patient's mood is reported as sad due to multiple losses. Patient denies any suicidal or homicidal ideation, intent or plan. She goes on to state that she does not want to continue to take any benzos and that her current medications are Prozac and BuSpar prescribed by her primary care physician. Patient is concerned that she will not be able to return to her residential program [facility] Past Medical History Arthritis: Yes Asthma: No Anxiety: Yes Depression: Yes Heart Rhythm Problems: No Cancer: No Cardiovascular Problems: Yes (cardiac cath,) Chemotherapy: No Chest Pain: Yes ("angina attack" 30 years ago) Congestive Heart Failure: No COPD: Yes Cerebrovascular Accident: Yes (2009) Diabetes: No Diminished Hearing: No Endocrine: No GERD: No Genitourinary: No Headaches: No Hiatal Hernia: No Immune Disorder: Yes (Hepatitis C+) Kidney Stones: Yes (1987) Musculoskeletal: No Neurologic: Yes (2 TIA's, Stroke) Psychiatric: Yes Reproductive: No Respiratory: Yes (EMPHYSEMA) Migraines: Yes Radiation Therapy: No Renal Failure: No Seizures: Yes (Last seizure 08/2017 related to withdrawals) Sickle Cell Disease: No Sleep Apnea: No Thyroid Disease: No Ulcer: No LMP: 15 YEARS AGO Past Surgical History Abdominal Surgery: Yes (Gallbladder removed 2010) AICD: No Arteriovenous Shunt: No Cardiac Surgery: Yes (Cardiac Cath 2016) Ear Surgery: No Endocrine Surgery: No Eye Surgery: No Genitourinary Surgery: No Gynecologic Surgery: Yes (Tubal Ligation 1992/ Ovarian Cysts removed 1995 and 1191) Hysterectomy: No Insulin Pump: No Joint Replacement: No Neurologic Surgery: Yes (anyrisym) Oral Surgery: Yes (Full extraction of all teeth/ Jaw reconstruction 2006) Pacemaker: No Thoracic Surgery: No Tonsillectomy: Yes Psychiatric History Psychiatric History Hx Psychiatric Treatment: Patient with a hx of depression and anxiety, PTSD, polysubstance use disorder with inpatient admissions December 2017 for OD and Aug 2017 for major depression w/ SI. History of Inpatient Treatment: Yes Guns or firearms in home: No Social History female. Currently lives at a residential. Hx Alcohol Use: No Hx Tobacco Use: Yes (1 pack) Hx Substance Use: No (denies) Substance Use Type: Nicotine/Cigarettes, Benzos (Valium,Xanax), Synth Opiates- Pain Pills Other Substances Used: 1 ppd, past heroin use Hx of Substance Use Treatment: No Allergies-Medications (Allergen,Severity, Reaction): Coded Allergies: Sulfa (Sulfonamide Antibiotics) (Unverified Allergy, Severe, 09/03/17) acetaminophen (Unverified Allergy, Severe, 09/03/17) codeine (Unverified Allergy, Severe, 09/03/17) erythromycin base (Unverified Allergy, Severe, 09/03/17) Reported Meds & Prescriptions Reported Meds & Active Scripts Active Trazodone (Trazodone HCl) 50 Mg Tab 50 Mg PO HS PRN 15 Days Fluoxetine (Fluoxetine HCl) 20 Mg Capsule 80 Mg PO DAILY 15 Days Keppra (Levetiracetam) 250 Mg Tab 750 Mg PO Q12HR 15 Days Reported Lipitor (Atorvastatin Calcium) 10 Mg Tab 10 Mg PO DAILY Aspirin 81 Mg Chew 81 Mg CHEW DAILY Review of Systems Neurologic: COMPLAINS OF: Abnormal gait, Poor Balance Psychiatric: COMPLAINS OF: Anxiety Mental Status Examination Appearance: Appropriate (Maintaining basic hygiene. Appears older than stated age) Consciousness: Alert (.) Orientation: x4 Motor Activity: Abnormal gait Speech: Unremarkable Language: Adequate Fund of Knowledge: Adequate Attention and Concentration: Adequate Memory: Unremarkable Mood: Sad, Anxious Affect: Appropriate Thought Process & Associations: Intact, Logical, Goal directed Thought Content: Appropriate Hallucination Type: None Delusion Type: None Suicidal Ideation: No Suicidal Plan: No Suicidal Intention: No Homicidal Ideation: No Homicidal Plan: No Homicidal Intention: No Insight: Fair Judgment: Adequate MDM Medical Decision Making Medical Record Reviewed: Yes Assessment/Plan 57-year-old white female, residing at [facility], with history of anxiety disorder substance use disorder, namely opiates and benzos, who presents under an involuntary status, as a transfer from [facility] after being medically cleared for benzo withdrawal . As per records received from the hospital the patient was taken to the emergency department by her daughter after she found her to be confused and hallucinating. Patient reports that she was talking to people that were not there and she was also talking to her . She states that she was aware that she was hallucinating because she knew that those people were not real. Patient states that she was using chemicals to get rid of bedbugs in her residence and believes that the fumes caused her hallucinations. Patient at the time of this evaluation presents no hallucinations, no delusions, no paranoia. There is no suicidal or homicidal ideation. Patient at this time does not meet criteria for to remain under the Salazar act. Her main concern now is whether she will be able to return to her residence because she believes she may have been affected. I have informed nursing staff and have encouraged the patient to call her daughter. She will follow up with her primary care physician. She says she was not given any prescriptions in the ED as patient still has in her belongings prescriptions that were given to her when she was discharge on December 28. Patient at this time is psychiatrically clear for discharge from the ED. The Salazar act has been lifted. Orders Orders Psych Screen (01/05/18 20:32) Diet Regular Basic (01/06/18 Breakfast) Results Vital Signs Date Time Temp Pulse Resp B/P (MAP) Pulse Ox O2 Delivery O2 Flow Rate FiO2 01/06/18 06:49 98.0 60 18 154/68 (96) 95 Room Air 01/05/18 19:10 98.8 70 18 141/74 (96) 98 Room Air Diagnosis Primary Impression: Adjustment disorder with mixed anxiety and depressed mood Additional Impression: Substance use disorder Ruled Out: Hallucination Psychiatrically Cleared: Yes Med/ Other Pt Specific Info: No Change to Meds Disposition: 01 DISCHARGE HOME Condition: Stable Problem Qualifiers Fallon Sullivan January 06, 2018 09:59
--- NOTE | 2018-01-06 10:28 | PD ---
Physical Exam Time Seen by Provider: 10:27 Narrative Please refer to previous providers documentation for details surrounding the patient's current visit. Data Data Last Documented VS Vital Signs Date Time Temp Pulse Resp B/P (MAP) Pulse Ox O2 Delivery O2 Flow Rate FiO2 01/06/18 06:49 98.0 60 18 154/68 (96) 95 Room Air Orders Orders Psych Screen (01/05/18 20:32) Diet Regular Basic (01/06/18 Breakfast) Ed Discharge Order (01/06/18 10:27) MDM Medical Record Reviewed: Yes Supervised Visit with SHAR: No Narrative Course Patient was seen and evaluated, medically clear, and evaluated by psychiatry. With no further medical needs, patient will be discharged at this time. Diagnosis Primary Impression: Adjustment disorder with mixed anxiety and depressed mood Additional Impression: Substance use disorder Ruled Out: Hallucination Disposition: 01 DISCHARGE HOME Condition: Stable Jazlyn William January 06, 2018 10:28
== END 2018-01-06 11:51 | disposition home or self-care (01) ==
LOC: NEPJ 18:57
DX: F43.23 Adjustment disorder with mixed anxiety and depressed mood (principal)
CPT/HCPCS: 99283